=== PATIENT | male | born 1945 | race Caucasian/White ===

== ENCOUNTER → 2020-07-21 | Outpatient (CLI) | payer MEDICARE, OTHER ==
--- NOTE | 2020-07-21 16:28 | Diagnostic Imaging Report ---
CT Lung Screening INDICATION: 63-cdof-dmzq smoking history. Current smoker. TECHNIQUE: Noncontrast, low-dose CT imaging performed according to the lung cancer screening protocol. Auto Exposure Controls were utilize during the CT exam to meet ALARA standards for radiation dose reduction. COMPARISON: None. FINDINGS: Calcified granulomas in the upper lobes. Small groundglass opacity in the left upper lobe measuring approximately 0.6 cm. No solid pulmonary nodule. No pleural effusion or pneumothorax. No endobronchial lesions. No mediastinal or hilar lymphadenopathy. Normal heart size. Moderate atherosclerotic calcifications including coronary. Mild calcified pleural plaques. No acute osseous findings. Visualized upper abdominal contents are unremarkable. IMPRESSION: 1. 0.6 cm groundglass opacities in the left upper lobe. No solid pulmonary nodules. Recommend follow-up with low-dose chest CT in six months. 2. Moderate atherosclerotic ossifications including coronary. 3. Mild calcified pleural plaques can be seen with history of asbestos exposure. LUNG-RADS CATEGORY: 3. MODIFIER: None. Dictated by: Dictated on workstation # [id number]
== END ==
LOC: RAD 12:54
PROVIDERS: ATTEND Family Medicine
DX: I25.10 Atherosclerotic heart disease of native coronary artery without angina pectoris (principal); R91.8 Other nonspecific abnormal finding of lung field; F17.210 Nicotine dependence, cigarettes, uncomplicated
CPT/HCPCS: 71271

== ENCOUNTER → 2021-01-25 | Outpatient (CLI) | payer MEDICARE, OTHER ==
--- NOTE | 2021-01-25 15:13 | Diagnostic Imaging Report ---
EXAMINATION: CT chest without contrast (lung screening). TECHNIQUE: Multiple contiguous axial images were obtained through the chest without the use of intravenous contrast according to lung cancer screening protocol. All CT scans use one or more of the following dose optimizing techniques: Automated exposure control, MA and/or KvP adjustment based on patient size and exam type or iterative reconstruction. HISTORY: 60-idlv-vept history of smoking. COMPARISON: 08/19/2019. FINDINGS: There is no edema or pneumonia. No pleural effusion. No pneumothorax. 6 mm ground-glass nodule in the left upper lobe is unchanged. No new nodules are seen. There is no axillary or supraclavicular lymphadenopathy. There is no mediastinal lymphadenopathy. Heart size is normal. There are severe coronary artery calcifications. No pericardial effusion. Aorta is normal in caliber. Limited views of the upper abdomen are unremarkable. There are no suspicious osseous lesions. IMPRESSION: 1. Stable left upper lobe ground-glass nodule. Patient can return to annual screening. LUNG-RADS CATEGORY: 2 MODIFIER: None. Dictated by: Dictated on workstation # [id number]
== END ==
LOC: RAD 13:15
PROVIDERS: ATTEND Family Medicine
DX: Z12.2 Encounter for screening for malignant neoplasm of respiratory organs (principal); R91.1 Solitary pulmonary nodule; Z87.891 Personal history of nicotine dependence
CPT/HCPCS: 71271

== ENCOUNTER 2021-08-31 09:58 | Inpatient (IN) | payer MEDICARE, OTHER ==
[2021-08-31] VITALS (15 sets, daily range): BP systolic 88–134; BP diastolic 52–79
[~2021-08-31] VITALS: Ht 177 cm; Wt 73.6 kg
[2021-08-31] MEDS ORDERED: methylPREDNISolone 125 MG (Solu-MEDROL) VIAL IV STA (10:10)
[2021-08-31] MEDS ORDERED: RT-ALBUTEROL/IPRATROPIUM 3 ML (DUONEB) VIAL INH ONE (10:15)
[2021-08-31] MEDS ORDERED: VANCOMYCIN INJECTION 1,500 MG in NS IV 500 ML 500 ML IV ONE (10:15)
[2021-08-31] MEDS ORDERED: CEFEPIME INJECTION 1,000 MG in NS (IVPB) 50 ML IV ONE (10:15)
[2021-08-31] MEDS ORDERED: NS IV 1000 ML 1,000 ML IV SCH ×2 (10:15)
--- NOTE | 2021-08-31 10:19 | ED Respiratory ---
General Chief Complaint: Respiratory Problems Stated Complaint: SOA Source: patient, other ([facility] urgent care called ahead and spoke to nursing) Exam Limitations: no limitations History of Present Illness Date Seen by Provider: Aug 31, 2021 Time Seen by Provider: 09:58 Initial Comments Patient presents ER by private conveyance from urgent care, [facility] with chief complaint of dyspnea x1 day and oxygen saturations in the low 80s on room air. He has no baseline need for supplemental oxygen nor does use inhalers nebulizers or other bronchodilators. He is a pack-a-day smoker for many decades. He does not know if he has a history of COPD. He follows with Dr. Bourgeois. He is not having any pain or history of heart disease but he does have type 2 diabetes, hyperlipidemia, hypertension. He has had no fevers or chills. He says his granddaughter was sick a week or 2 ago but she got over it. He did have 2 doses of COVID vaccine as well as a flu vaccine but has never had COVID. He says his granddaughter was tested but they never found what caused her illness. He is not having diarrhea nausea vomiting or chills. All he thought was wrong was some sinus congestion and that is what brought him to the urgent care today. He has not been on antibiotics or steroids nor has he been hospitalized in the past 90 days. The patient is okay with being intubated if necessary and is a full code. Allergies and Home Medications Allergies Coded Allergies: No Known Drug Allergies (Unverified , 08/31/21) Patient Home Medication List Home Medication List Reviewed: Yes Review of Systems Review of Systems Constitutional: No chills, No diaphoresis, No fever; malaise EENTM: No ear discharge, No ear pain Respiratory: cough, dyspnea on exertion; No phlegm; short of breath, wheezing Cardiovascular: No chest pain, No edema, No Hx of Intervention Gastrointestinal: No abdominal pain, No constipation, No diarrhea, No nausea Genitourinary: No discharge, No dysuria Musculoskeletal: No back pain, No joint pain Skin: No dryness, No lesions, No rash Psychiatric/Neurological: Denies Anxiety, Denies Depressed All Other Systems Reviewed Negative Unless Noted: Yes Past Nkwhrta-Ybbywc-Wzbjdw Hx Patient Social History Tobacco Use?: Yes Tobacco type used: Cigarettes Smoking Status: Current Everyday Smoker (Pack per day) Use of E-Cig and/or Vaping dev: No Substance use?: No Alcohol Use?: Yes Alcohol type: Beer Alcohol Frequency: Rarely Physical Exam Vital Signs - First Documented 08/31/21 08/31/21 09:58 10:01 Temp 37.5 Pulse 117 Resp 35 B/P (MAP) 110/86 (94) Pulse Ox 79 O2 Delivery Room Air O2 Flow Rate 10.00 Capillary Refill : Height: '" Weight: lbs. oz. kg; BMI Method: General Appearance: WD/WN, no apparent distress Eyes: Bilateral Eye Normal Inspection, Bilateral Eye PERRL, Bilateral Eye EOMI HEENT: PERRL/EOMI; No pharynx normal (Dry oral mucosa) Neck: non-tender, full range of motion, supple, normal inspection, other (No evidence of jugular venous distention) Respiratory: respiratory distress (Severe with oxygen saturation in the upper 70s on room air, increased work of breathing 40 breaths/min with accessory muscle use and intercostal retractions), accessory muscle use, wheezing, expiration Cardiovascular: normal peripheral pulses, regular rate, rhythm, no edema, no JVD, other (Prolonged capillary refill) Gastrointestinal: normal bowel sounds, non tender, soft, no organomegaly Neurologic/Psychiatric: alert, normal mood/affect, oriented x 3 Skin: warm/dry, cyanosis (A PICC) Focused Exam Sepsis Stage: Severe Sepsis Possible Source: Pulmonary Lactate Level 08/31/21 10:05: Lactic Acid Level 3.79*H 08/31/21 12:13: Time of Focused Exam: 12:27 Respiratory: Decreased Breath Sounds, Expiration, Respiratory Distress, Wheezing Cardiovascular: Regular Rate, Rhythm, No Edema; No Tachycardia (90) Capillary Refill: Less Than 3 Seconds Peripheral Pulses: 2+ Radial Pulses (R), 2+ Radial Pulses (L) Skin: normal color, warm/dry Lactic Acid Level Laboratory Tests Test 08/31/21 10:05 08/31/21 12:13 Lactic Acid Level 3.79 MMOL/L (0.50-2.00) *H Within 3hrs of presentation: Admin fluids, Admin ABX, Blood cultures prior to ABX's, Focus exam, Lactate level Progress/Results/Core Measures Suspected Sepsis SIRS Temperature: Pulse: Respiratory Rate: Laboratory Tests 08/31/21 10:05: White Blood Count 10.2 Blood Pressure / Mean: 08/31/21 10:05: Lactic Acid Level 3.79*H 08/31/21 12:13: Laboratory Tests 08/31/21 10:05: Creatinine 1.49H, INR Comment 1.2, Platelet Count 222, Total Bilirubin 0.9 Results/Orders Lab Results Laboratory Tests Test 08/31/21 10:02 08/31/21 10:05 08/31/21 10:45 08/31/21 12:13 Range/Units Influenza Type A (RT-PCR) Not Detected Not Detecte Influenza Type B (RT-PCR) Not Detected Not Detecte SARS-CoV-2 RNA (RT-PCR) Not Detected Not Detecte White Blood Count 10.2 4.3-11.0 10^3/uL Red Blood Count 5.83 H 4.30-5.52 10^6/uL Hemoglobin 17.3 13.3-17.7 g/dL Hematocrit 53 40-54 % Mean Corpuscular Volume 92 80-99 fL Mean Corpuscular Hemoglobin 30 25-34 pg Mean Corpuscular Hemoglobin Concent 32 32-36 g/dL Red Cell Distribution Width 14.6 H 10.0-14.5 % Platelet Count 222 130-400 10^3/uL Mean Platelet Volume 10.7 9.0-12.2 fL Immature Granulocyte % (Auto) 0 % Neutrophils (%) (Auto) 82 H 42-75 % Lymphocytes (%) (Auto) 11 L 12-44 % Monocytes (%) (Auto) 5 0-12 % Eosinophils (%) (Auto) 0 0-10 % Basophils (%) (Auto) 1 0-10 % Neutrophils # (Auto) 8.4 H 1.8-7.8 10^3/uL Lymphocytes # (Auto) 1.1 1.0-4.0 10^3/uL Monocytes # (Auto) 0.5 0.0-1.0 10^3/uL Eosinophils # (Auto) 0.0 0.0-0.3 10^3/uL Basophils # (Auto) 0.1 0.0-0.1 10^3/uL Immature Granulocyte # (Auto) 0.0 0.0-0.1 10^3/uL Neutrophils % (Manual) 45 % Lymphocytes % (Manual) 10 % Monocytes % (Manual) 3 % Eosinophils % (Manual) 0 % Basophils % (Manual) 1 % Band Neutrophils 41 % Blood Morphology Comment NORMAL Prothrombin Time 15.1 H 12.2-14.7 SEC INR Comment 1.2 0.8-1.4 Activated Partial Thromboplast Time 40 H 24-35 SEC D-Dimer 3.29 H 0.00-0.49 UG/ML Blood Gas Puncture Site RIGHT RADIAL L RAD Blood Gas Patient Temperature 37.5 37.5 Arterial Blood pH 7.20 *L 7.28 *L 7.37-7.43 Arterial Blood Partial Pressure CO2 59 H 39 35-45 MMHG Arterial Blood Partial Pressure O2 22 *L 75 L 79-93 MMHG Arterial Blood HCO3 22 L 17 *L 23-27 MMOL/L Arterial Blood Total CO2 23.8 18.4 L 21.0-31.0 MMOL/L Arterial Blood Oxygen Saturation 21 L 94 94-100 % Arterial Blood Base Excess -4.6 L -8.1 L -2.5-2.5 MMOL/L Willy Test YES-POS YES-POS Blood Gas Ventilator Setting NO NO Blood Gas Inspired Oxygen 10 60% Sodium Level 133 L 135-145 MMOL/L Potassium Level 5.0 3.6-5.0 MMOL/L Chloride Level 95 L 98-107 MMOL/L Carbon Dioxide Level 17 L 21-32 MMOL/L Anion Gap 21 H 5-14 MMOL/L Blood Urea Nitrogen 28 H 7-18 MG/DL Creatinine 1.49 H 0.60-1.30 MG/DL Estimat Glomerular Filtration Rate 49 BUN/Creatinine Ratio 19 Glucose Level 197 H 70-105 MG/DL Lactic Acid Level 3.79 *H 0.50-2.00 MMOL/L Calcium Level 9.9 8.5-10.1 MG/DL Corrected Calcium 8.5-10.1 MG/DL Magnesium Level 2.1 1.6-2.4 MG/DL Total Bilirubin 0.9 0.1-1.0 MG/DL Aspartate Amino Transf (AST/SGOT) 22 5-34 U/L Alanine Aminotransferase (ALT/SGPT) 15 0-55 U/L Alkaline Phosphatase 66 40-136 U/L Troponin I < 0.028 <0.028 NG/ML C-Reactive Protein High Sensitivity 53.70 H 0.00-0.50 MG/DL B-Type Natriuretic Peptide 69.3 <100.0 PG/ML Total Protein 9.0 H 6.4-8.2 GM/DL Albumin 4.7 H 3.2-4.5 GM/DL Procalcitonin 5.85 H <0.10 NG/ML My Orders Orders - GABI SANCHEZ Cbc With Automated Diff (08/31/21 10:10) Comprehensive Metabolic Panel (08/31/21 10:10) Blood Culture (08/31/21 10:10) Sputum Culture (08/31/21 10:10) Urinalysis (08/31/21 10:10) Urine Culture (08/31/21 10:10) Protime With Inr (08/31/21 10:10) Partial Thromboplastin Time (08/31/21 10:10) Chest 1 View, Ap/Pa Only (08/31/21 10:10) Ed Iv/Invasive Line Start (08/31/21 10:10) Ed Iv/Invasive Line Start (08/31/21 10:10) Ekg Tracing (08/31/21 10:10) Troponin I Bernardo (08/31/21 10:10) Vital Signs Adult Sepsis Patie Q15M (08/31/21 10:10) O2 (08/31/21 10:10) Remove Rings In Anticipation O (08/31/21 10:10) Lactic Acid Analyzer (08/31/21 10:10) Influenza A And B By Pcr (08/31/21 10:10) Ns Iv 1000 Ml (Sodium Chloride 0.9%) (08/31/21 10:15) Cefepime Injection (Maxipime Injection) (08/31/21 10:15) Vancomycin Injection (Vancomycin Injecti (08/31/21 10:15) Ed Iv/Invasive Line Start (08/31/21 10:10) Ns Iv 1000 Ml (Sodium Chloride 0.9%) (08/31/21 10:15) Albuterol/Ipra Inhalation Soln (Duoneb I (08/31/21 10:15) Methylprednisolone Sod Succ (Solu-Medrol (08/31/21 10:10) Covid 19 Inhouse Test (08/31/21 10:10) Svn Small Volume Nebulizer (08/31/21 10:10) Bnp Bernardo (08/31/21 10:10) Procalcitonin (Pct) (08/31/21 10:10) Hs C Reactive Protein (08/31/21 10:10) Fibrin Degradation Products (08/31/21 10:10) Magnesium (08/31/21 10:10) Arterial Blood Gas (08/31/21 10:10) Arterial Blood Gas (08/31/21 10:45) Manual Differential (08/31/21 10:05) Ed Iv/Invasive Line Start (08/31/21 11:09) Ns Iv 500 Ml (Sodium Chloride 0.9%) (08/31/21 11:15) Ct Angio Chest W (08/31/21 11:11) Iohexol Injection (Omnipaque 350 Mg/Ml 1 (08/31/21 11:30) Received Contrast (Hold Metformin- Contr (08/31/21 11:30) Sodium Chloride Flush (Catheter Flush Sy (08/31/21 11:30) Ns (Ivpb) (Sodium Chloride 0.9% Ivpb Bag (08/31/21 11:30) Iohexol Injection (Omnipaque 350 Mg/Ml 1 (08/31/21 11:30) Received Contrast (Hold Metformin- Contr (08/31/21 11:30) Sodium Chloride Flush (Catheter Flush Sy (08/31/21 11:30) Ns (Ivpb) (Sodium Chloride 0.9% Ivpb Bag (08/31/21 11:30) Iohexol Injection (Omnipaque 350 Mg/Ml 1 (08/31/21 11:45) Received Contrast (Hold Metformin- Contr (08/31/21 11:45) Ns (Ivpb) (Sodium Chloride 0.9% Ivpb Bag (08/31/21 11:45) Sodium Chloride Flush (Catheter Flush Sy (08/31/21 11:45) Medications Given in ED Current Medications Medications Dose Ordered Sig/Stefano Route Start Time Stop Time Status Last Admin Dose Admin Albuterol/ Ipratropium 3 ml ONCE ONCE INH 08/31/21 10:15 08/31/21 10:16 DC 08/31/21 10:25 3 ML Cefepime HCl 1000 mg/Sodium Chloride 50 ml @ 100 mls/hr ONCE ONCE IV 08/31/21 10:15 08/31/21 10:44 DC 08/31/21 10:24 100 MLS/HR Iohexol 100 ml ONCE ONCE IV 08/31/21 11:30 08/31/21 11:31 DC 08/31/21 11:33 77 ML Sodium Chloride 100 ml ONCE ONCE IV 08/31/21 11:30 08/31/21 11:31 DC 08/31/21 11:33 80 ML Sodium Chloride 500 ml @ 0 mls/hr Q0M ONCE IV 08/31/21 11:15 08/31/21 11:16 DC 08/31/21 11:14 0 MLS/HR Vancomycin HCl 1500 mg/Sodium Chloride 500 ml @ 257 mls/hr ONCE ONCE IV 08/31/21 10:15 08/31/21 12:11 DC 08/31/21 10:54 257 MLS/HR Vital Signs/I&O 08/31/21 08/31/21 08/31/21 08/31/21 09:58 10:01 10:07 10:25 Temp 37.5 Pulse 117 110 Resp 35 42 B/P (MAP) 110/86 (94) Pulse Ox 79 93 O2 Delivery Room Air OxyMask NIV Bilevel O2 Flow Rate 10.00 60.00 08/31/21 08/31/21 08/31/21 10:44 11:05 11:42 Pulse 99 93 Resp 37 40 40 B/P (MAP) 85/61 113/64 96/56 Pulse Ox 92 99 97 O2 Delivery NIV Bilevel NIV Bilevel Capillary Refill : Progress Note #1: Time: : Progress Note We initiated a septic work-up, obtain an ABG, put him on an oxygen mask at 10 L which only brought him up to the upper 80s low 90%. Put him on a BiPAP 15/5 60% and he is pulling 5-600 tidal volumes. This helped his work of breathing significantly. We will give him DuoNeb, Solu-Medrol 125 mg and check labs looking for source of his dyspnea. Suspect highly that he has a COPD exacerbation however could also be less likely pneumonia, viral pneumonia, pulmonary embolism etc. Progress Note #2: Time: 11:12 Progress Note Because of his D-dimer profound hypoxemia we ordered a CT angio of the chest. Because his lactate put him in severe sepsis range we ordered another 500 cc normal saline, bringing us over 30 cc/kg, 2500 cc total. ECG Initial ECG Impression Date: Aug 31, 2021 Initial ECG Impression Time: 10:07 Initial ECG Rate: 110 Initial ECG Rhythm: S.Tach Initial ECG Intervals: Normal Initial ECG Impression: Normal, Nonspecific Changes Initial ECG Comparisson: No Previous ECG Available Comment Respiratory artifact but no clinically relevant ST elevation or depression. Diagnostic Imaging Diagonstic Imaging: Xray Plain Films/CT/US/NM/MRI: chest Comments [facility], [place] NAME: MONAE PROCTOR [facility] REC#: [id number] PT STATUS: REG ER : 1945 PHYSICIAN: GABI SANCHEZ MD ADMIT DATE: 08/31/21/ER Draft Date of Exam:08/31/21 CHEST 1 VIEW, AP/PA ONLY INDICATION: Dyspnea. Frontal chest obtained at 11:01 a.m. There is no prior study for comparison Heart is borderline in size. There are chronic appearing increased interstitial markings. There is hyperinflation. No pneumothorax or pleural fluid. There is no discrete acute infiltrate. There are advanced degenerative changes of the glenohumeral joints on both sides. IMPRESSION: Chronic appearing increased interstitial markings. Hyperinflation. No dayna consolidation or pleural fluid. Dictated on workstation # [id number] Dict: 08/31/21 1115 Trans: 08/31/21 1128 CV [id number] Interpreted by: JANI WELLINGTON MD Electronically signed by: Reviewed: Reviewed by Me Diagonstic Imaging: CT Plain Films/CT/US/NM/MRI: chest (Angiogram) Comments [facility], [place] NAME: MONAE PROCTOR [facility] REC#: [id number] PT STATUS: REG ER : 1945 PHYSICIAN: GABI SANCHEZ MD ADMIT DATE: 08/31/21/ER Signed Date of Exam:08/31/21 CT ANGIO CHEST W EXAMINATION: CT angiography of the chest. TECHNIQUE: Contrast enhanced thin section helical images were obtained through the chest with intravenous contrast timed for the optimal opacification of the arterial structures per CTA protocol. Post-processing, reconstructions and interpretation of angiographic images of the vessels was performed. 3D MIP reconstructions were performed and reviewed. All CT scans use one or more of the following dose optimizing techniques: automated exposure control, MA and/or KvP adjustment based on a patient size and exam type, or iterative reconstruction. HISTORY: Shortness of breath and hypoxia. COMPARISON: 01/25/2021 FINDINGS: Vascular: No filling defects are seen within the visualized pulmonary arteries. Distal pulmonary arteries are not well visualized secondary to respiratory motion consolidation. There are vascular calcifications of the aorta and coronary vessels without aneurysm. Thyroid: The thyroid is normal. Mediastinum: Heart size is normal without significant pericardial effusion. There are multiple mildly enlarged mediastinal lymph nodes measuring up to 1.7 cm short axis. Lungs and airways: Patchy consolidation within the lung bases greatest within the left lower lobe. No pleural effusion or pneumothorax. The airways are normal. Upper abdomen: The subphrenic structures are normal. Musculoskeletal: Degenerative changes of the spine without suspicious osseous lesion or compression fracture. IMPRESSION: 1. No obvious findings of pulmonary embolus within the visualized pulmonary arteries. 2. Patchy consolidation throughout the lungs concerning for multifocal pneumonia. Dictated by: Dictated on workstation # [id number] Dict: 08/31/21 1144 Trans: 08/31/21 1150 CV [id number] Interpreted by: PETRA CORTES DO Electronically signed by: PETRA CORTES DO 08/31/21 1150 Reviewed: Reviewed by Me Departure Communication (Admissions) Time/Spoke to Admitting Phy: 11:50 Discussed the case with Dr. Depmsey who will come down and visit with the patient and agrees to admit him and write orders. Impression Primary Impression: Pneumonia Qualified Codes: J18.9 - Pneumonia, unspecified organism Additional Impressions: Severe sepsis Acute respiratory failure with hypoxemia Disposition: ADMITTED INPATIENT Condition: Stable Admissions Decision to Admit Reason: Admit from ER (General) Decision to Admit/Date: Aug 31, 2021 Time/Decision to Admit Time: 11:30 Departure-Patient Inst. Referrals: SHERITA BOURGEOIS DO (PCP/Family) Primary Care Physician GABI SANCHEZ Aug 31, 2021 10:19
[2021-08-31 10:23] LABS: ABG BASE EXCESS -4.6 MMOL/L (-2.5-2.5); ABG OXYGEN SATURATION 21 % (94-100); ABG PCO2 59 MMHG (35-45); ABG TCO2 23.8 MMOL/L (21.0-31.0); BASOPHILS # (AUTO) 0.1 10^3/uL (0.0-0.1); BASOPHILS % (AUTO) 1 % (0-10); EOSINOPHILS % (AUTO) 0 % (0-10); HEMATOCRIT 53 % (40-54); HEMOGLOBIN 17.3 g/dL (13.3-17.7); LYMPHOCYTES # (AUTO) 1.1 10^3/uL (1.0-4.0); LYMPHOCYTES % (AUTO) 11 % (12-44); MEAN CORPUSCULAR HEMOGLOBIN 30 pg (25-34); MEAN CORPUSCULAR HGB CONC 32 g/dL (32-36); MEAN CORPUSCULAR VOLUME 92 fL (80-99); MEAN PLATELET VOLUME 10.7 fL (9.0-12.2); MONOCYTES # (AUTO) 0.5 10^3/uL (0.0-1.0); MONOCYTES % (AUTO) 5 % (0-12); NEUTROPHILS # (AUTO) 8.4 10^3/uL (1.8-7.8); NEUTROPHILS % (AUTO) 82 % (42-75); PLATELET COUNT 222 10^3/uL (130-400); WHITE BLOOD COUNT 10.2 10^3/uL (4.3-11.0)
[2021-08-31 10:31] LABS: ABG PO2 22 MMHG (79-93); ALLENS TEST YES-POS; INSPIRED O2 10; PATIENT TEMP 37.5; VENTILATOR NO
[2021-08-31 10:44] LABS: ALBUMIN 4.7 GM/DL (3.2-4.5); CHLORIDE 95 MMOL/L (98-107); FIBRIN DEGRADATION PRODUCTS 3.29 UG/ML (0.00-0.49); INR 1.2 (0.8-1.4); PROTHROMBIN TIME PATIENT 15.1 SEC (12.2-14.7); SODIUM 133 MMOL/L (135-145)
[2021-08-31 10:46] LABS: CALCIUM 9.9 MG/DL (8.5-10.1)
[2021-08-31 10:47] LABS: GLUCOSE 197 MG/DL (70-105)
[2021-08-31 10:48] LABS: CARBON DIOXIDE 17 MMOL/L (21-32)
[2021-08-31 10:49] LABS: BILIRUBIN,TOTAL 0.9 MG/DL (0.1-1.0)
[2021-08-31 10:50] LABS: ALKALINE PHOSPHATASE 66 U/L (40-136)
[2021-08-31 10:51] LABS: CREATININE SERUM 1.49 MG/DL (0.60-1.30); GFR ESTIMATED 49
[2021-08-31 10:52] LABS: BUN/CREATININE RATIO 19
[2021-08-31 10:53] LABS: ALANINE AMINOTRANSFERASE 15 U/L (0-55); MAGNESIUM 2.1 MG/DL (1.6-2.4)
[2021-08-31 10:55] LABS: ABG BASE EXCESS -8.1 MMOL/L (-2.5-2.5); ABG OXYGEN SATURATION 94 % (94-100); ABG PCO2 39 MMHG (35-45); ABG PO2 75 MMHG (79-93); ABG TCO2 18.4 MMOL/L (21.0-31.0)
[2021-08-31 11:02] LABS: ABG PH 7.28 (7.37-7.43); ALLENS TEST YES-POS; INSPIRED O2 60%; PATIENT TEMP 37.5; VENTILATOR NO
[2021-08-31 11:04] LABS: BAND NEUTROPHILS 41 %; BASOPHILS % (MANUAL) 1 %; EOSINOPHILS % (MANUAL) 0 %; LYMPHOCYTES % (MANUAL) 10 %; MONOCYTES % (MANUAL) 3 %; NEUTROPHILS % (MANUAL) 45 %; RBC MORPH NORMAL
[2021-08-31] MEDS ORDERED: NS IV 500 ML 500 ML IV ONE (11:15)
--- NOTE | 2021-08-31 11:29 | Diagnostic Imaging Report ---
INDICATION: Dyspnea. Frontal chest obtained at 11:01 a.m. There is no prior study for comparison Heart is borderline in size. There are chronic appearing increased interstitial markings. There is hyperinflation. No pneumothorax or pleural fluid. There is no discrete acute infiltrate. There are advanced degenerative changes of the glenohumeral joints on both sides. IMPRESSION: Chronic appearing increased interstitial markings. Hyperinflation. No dayna consolidation or pleural fluid. Dictated by: Dictated on workstation # [id number]
[2021-08-31] MEDS ORDERED: NS 100 ML (IVPB) BAG IV ONE ×3 (11:30→11:45)
[2021-08-31] MEDS ORDERED: IOHEXOL 350 MG/ML 100 ML (OMNIPAQUE 350) VIAL IV ONE ×3 (11:30→11:45)
[2021-08-31] MEDS ORDERED: HOLD METFORMIN - RECEIVED CONTRAST 20 ML VIAL IV SCH ×3 (11:30→11:45)
[2021-08-31] MEDS ORDERED: CATHETER FLUSH 10 ML SYR IV PRN ×3 (11:30→11:45)
--- NOTE | 2021-08-31 11:49 | Diagnostic Imaging Report ---
EXAMINATION: CT angiography of the chest. TECHNIQUE: Contrast enhanced thin section helical images were obtained through the chest with intravenous contrast timed for the optimal opacification of the arterial structures per CTA protocol. Post-processing, reconstructions and interpretation of angiographic images of the vessels was performed. 3D MIP reconstructions were performed and reviewed. All CT scans use one or more of the following dose optimizing techniques: automated exposure control, MA and/or KvP adjustment based on a patient size and exam type, or iterative reconstruction. HISTORY: Shortness of breath and hypoxia. COMPARISON: 01/25/2021 FINDINGS: Vascular: No filling defects are seen within the visualized pulmonary arteries. Distal pulmonary arteries are not well visualized secondary to respiratory motion consolidation. There are vascular calcifications of the aorta and coronary vessels without aneurysm. Thyroid: The thyroid is normal. Mediastinum: Heart size is normal without significant pericardial effusion. There are multiple mildly enlarged mediastinal lymph nodes measuring up to 1.7 cm short axis. Lungs and airways: Patchy consolidation within the lung bases greatest within the left lower lobe. No pleural effusion or pneumothorax. The airways are normal. Upper abdomen: The subphrenic structures are normal. Musculoskeletal: Degenerative changes of the spine without suspicious osseous lesion or compression fracture. IMPRESSION: 1. No obvious findings of pulmonary embolus within the visualized pulmonary arteries. 2. Patchy consolidation throughout the lungs concerning for multifocal pneumonia. Dictated by: Dictated on workstation # [id number]
--- NOTE | 2021-08-31 12:13 | History & Physical-Hospitalist ---
History of Present Illness HPI/Chief Complaint Patient 75-year-old male who presented to the emergency department due to shortness of breath and cough. He states it started a day or 2 ago but worsened acutely today. He states his granddaughter brought him in as he was worsening. On arrival he was quite hypoxic with oxygen saturations in the 70s placed on OxiMask. He was quite hypoxic on ABG and was subsequently placed on BiPAP for work of breathing. CTA was done which was negative for PE but showed multifocal pneumonia. He was admitted to the ICU for further management and IV antibiotics. Source: patient Exam Limitations: no limitations Date Seen 08/31/21 Time Seen by a Provider: 12:07 Attending Physician PCP Sherita Bourgeois DO Referring Physician Date of Admission Home Medications & Allergies Home Medications Reviewed patient Home Medication Reconciliation performed by pharmacy medication reconciliations ict support technicians and/or nursing. Patients Allergies have been reviewed. Allergies Allergies Coded Allergies No Known Drug Allergies (Unverified08/31/21) Past Jscdied-Frgmfu-Kxnlns Hx Patient Social History Tobacco Use?: Yes Tobacco type used: Cigarettes Smoking Status: Current Everyday Smoker (Pack per day) Use of E-Cig and/or Vaping dev: No Substance use?: No Alcohol Use?: Yes Alcohol type: Beer Alcohol Frequency: Rarely Immunizations Up To Date First/Initial COVID19 Vaccinat: RECEIVED, UNSURE WHEN Second COVID19 Vaccination Maxime: RECEIVED, UNSURE WHEN Current Status Advance Directives: No Communicates: Verbally Primary Language: Guyanese Preferred Spoken Language: Guyanese Is interpretation needed?: No Implanted or Applied Medical D: None Review of Systems Constitutional: No chills, No fever EENTM: no symptoms reported Respiratory: cough, dyspnea on exertion; No hemoptysis; short of breath Cardiovascular: No chest pain, No edema, No palpitations Gastrointestinal: No abdominal pain, No constipation, No diarrhea, No nausea, No vomiting Genitourinary: No dysuria, No frequency Musculoskeletal: no symptoms reported Skin: no symptoms reported Psychiatric/Neurological: No Symptoms Reported Physical Exam Physical Exam Vital Signs Vital Signs - First Documented 08/31/21 08/31/21 08/31/21 09:58 10:01 14:40 Temp 37.5 Pulse 117 Resp 35 B/P (MAP) 110/86 (94) Pulse Ox 79 O2 Delivery Room Air O2 Flow Rate 10.00 FiO2 60 Capillary Refill : Less Than 3 Seconds Height, Weight, BMI Height: '" Weight: lbs. oz. kg; 28.00 BMI Method: General Appearance: No Apparent Distress, WD/WN HEENT: PERRL/EOMI, Moist Mucous Membranes Neck: Normal Inspection, Supple Respiratory: No Accessory Muscle Use, Rhonci; No Wheezing; Other (on BiPAP) Cardiovascular: Regular Rate, Rhythm, No Murmur Gastrointestinal: Normal Bowel Sounds, Non Tender, Soft Extremity: Normal Capillary Refill, No Calf Tenderness, No Pedal Edema Neurologic/Psychiatric: Alert, Oriented x3, Normal Mood/Affect Results Results/Procedures Labs Laboratory Tests 08/31/21 10:05 09/01/21 04:43 09/02/21 03:50 Patient resulted labs reviewed. Imaging: Reviewed Imaging Report [facility] [place] NAME: MONAE PROCTOR [facility] REC#: [id number] PT STATUS: REG ER : 1945 PHYSICIAN: GABI SANCHEZ MD ADMIT DATE: 08/31/21/ER Signed Date of Exam:08/31/21 CHEST 1 VIEW, AP/PA ONLY INDICATION: Dyspnea. Frontal chest obtained at 11:01 a.m. There is no prior study for comparison Heart is borderline in size. There are chronic appearing increased interstitial markings. There is hyperinflation. No pneumothorax or pleural fluid. There is no discrete acute infiltrate. There are advanced degenerative changes of the glenohumeral joints on both sides. IMPRESSION: Chronic appearing increased interstitial markings. Hyperinflation. No dayna consolidation or pleural fluid. Dictated by: Dictated on workstation # [id number] Dict: 08/31/21 1115 Trans: 08/31/21 1143 [facility] [id number] Interpreted by: JANI WELLINGTON MD Electronically signed by: JANI WELLINGTON MD 08/31/21 1143 [facility] [employer] [place] NAME: HITESHMONAE [facility] REC#: [id number] PT STATUS: REG ER : 1945 PHYSICIAN: GABI SANCHEZ MD ADMIT DATE: 08/31/21/ER Signed Date of Exam:08/31/21 CT ANGIO CHEST W EXAMINATION: CT angiography of the chest. TECHNIQUE: Contrast enhanced thin section helical images were obtained through the chest with intravenous contrast timed for the optimal opacification of the arterial structures per CTA protocol. Post-processing, reconstructions and interpretation of angiographic images of the vessels was performed. 3D MIP reconstructions were performed and reviewed. All CT scans use one or more of the following dose optimizing techniques: automated exposure control, MA and/or KvP adjustment based on a patient size and exam type, or iterative reconstruction. HISTORY: Shortness of breath and hypoxia. COMPARISON: 01/25/2021 FINDINGS: Vascular: No filling defects are seen within the visualized pulmonary arteries. Distal pulmonary arteries are not well visualized secondary to respiratory motion consolidation. There are vascular calcifications of the aorta and coronary vessels without aneurysm. Thyroid: The thyroid is normal. Mediastinum: Heart size is normal without significant pericardial effusion. There are multiple mildly enlarged mediastinal lymph nodes measuring up to 1.7 cm short axis. Lungs and airways: Patchy consolidation within the lung bases greatest within the left lower lobe. No pleural effusion or pneumothorax. The airways are normal. Upper abdomen: The subphrenic structures are normal. Musculoskeletal: Degenerative changes of the spine without suspicious osseous lesion or compression fracture. IMPRESSION: 1. No obvious findings of pulmonary embolus within the visualized pulmonary arteries. 2. Patchy consolidation throughout the lungs concerning for multifocal pneumonia. Dictated by: Dictated on workstation # [id number] Dict: 08/31/21 1144 Trans: 08/31/21 1150 [facility] [id number] Interpreted by: PETRA CORTES DO Electronically signed by: PETRA CORTES DO 08/31/21 1150 Assessment/Plan Admission Diagnosis Acute hypoxic respiratory failure due to multifocal pneumonia Admission Status: Inpatient Order (span 2 midnights) Reason for Inpatient Admission: see below Assessment and Plan Acute hypoxic respiratory failure due to multifocal pneumonia Continue on BiPAP Continue on IV abx No sepsis criteria met currently but high procal and on BiPAP so will admit to ICU MAT protocol Pulm/TeleICU consulted, appreciate recs HTN BP low currently, trend Hold home meds NIDDMII Hold home metformin as he received contrast SSI HLD Continue home meds when med rec done DVT ppx: Lovenox Diagnosis/Problems Diagnosis/Problems (1) Acute respiratory failure with hypoxia Status: Acute (2) CKD (chronic kidney disease) Qualifiers: Chronic kidney disease stage: stage 3 (moderate) Chronic kidney disease stage 3 subtype: stage 3a (GFR 45-59) Qualified Codes: N18.31 - Chronic kidney disease, stage 3a (3) COPD (chronic obstructive pulmonary disease) Status: Chronic Qualifiers: COPD type: unspecified COPD Qualified Codes: J44.9 - Chronic obstructive pulmonary disease, unspecified (4) Essential (primary) hypertension Status: Chronic (5) HLD (hyperlipidemia) Status: Chronic Qualifiers: Hyperlipidemia type: unspecified Qualified Codes: E78.5 - Hyperlipidemia, unspecified (6) Non-insulin dependent type 2 diabetes mellitus Status: Chronic (7) Tobacco abuse Status: Chronic Copy Copies To 1: SHERITA BOURGEOIS KATELYN M MD Aug 31, 2021 12:13
[2021-08-31] MEDS ORDERED: NS IV 1000 ML 1,000 ML IV ONE (12:45)
[2021-08-31 13:19] LABS: BILIRUBIN,URINE NEGATIVE (NEGATIVE); CLARITY,URINE CLEAR; COLOR,URINE YELLOW; GLUCOSE, URINE (UA) 3+ (NEGATIVE); KETONES,URINE NEGATIVE (NEGATIVE); LEUKOCYTE ESTERASE ,URINE TRACE (NEGATIVE); NITRITE,URINE NEGATIVE (NEGATIVE); PROTEIN,URINE TRACE (NEGATIVE)
[2021-08-31 13:28] LABS: WBC,URINE 0-2 /HPF
[2021-08-31 13:29] LABS: BACTERIA,URINE TRACE /HPF; SQUAMOUS EPITHELIAL CELL,UR 0-2 /HPF
[2021-08-31] MEDS ORDERED: BENZONATATE 100 MG (TESSALON) CAPSULE PO PRN (13:45)
[2021-08-31] MEDS ORDERED: ONDANSETRON 4 MG/2 ML (SDV) Z0FRAN IV PRN (13:45)
[2021-08-31] MEDS ORDERED: CALCIUM CARBONATE 500 MG (TUMS) TAB.CHEW PO PRN (13:45)
[2021-08-31] MEDS ORDERED: polyethylene glycoL POWDER 17 GM (MIRALAX) PACK PO PRN (13:45)
[2021-08-31] MEDS ORDERED: MELATONIN 3 MG TABLET PO PRN (13:45)
[2021-08-31] MEDS ORDERED: ACETAMINOPHEN 325 MG TABLET PO PRN (13:45)
[2021-08-31] MEDS: AZITHROMYCIN INJECTION 500 MG in NS (IVPB) 250 ML IV SCH (14:07)
[2021-08-31] MEDS: ENOXAPARIN 40 MG/0.4 ML (LOVENOX) SYR SC SCH (14:07)
[2021-08-31] MEDS ORDERED: OMEG-160 PO (14:16)
[2021-08-31] MEDS ORDERED: GEMF600T88 PO (14:16)
[2021-08-31] MEDS ORDERED: ATOR40TA70 PO (14:16)
[2021-08-31] MEDS ORDERED: ASPI-1238 PO (14:16)
[2021-08-31] MEDS ORDERED: ENAL20TA16 PO (14:16)
[2021-08-31] MEDS ORDERED: METF-397 PO (14:16)
[2021-08-31] MEDS: CEFEPIME 1,000 MG/NS 50 ML IVPB IV SCH ×4 (14:21→22:49)
[2021-08-31] MEDS ORDERED: RT-ALBUTEROL/IPRATROPIUM 3 ML (DUONEB) VIAL INH PRN (15:00)
--- NOTE | 2021-08-31 16:55 | Tele-ICU Consult ---
History of Present Illness History of Present Illness Date Seen by Provider: Aug 31, 2021 Time Seen by Provider: 13:01 Date of Admission (Tele-ICU Physician , consultation) Available chart/ vitals / labs / Images reviewed H&P is from ER notes Patient's information available about PMH, Shx, Fhx allergy reviewed in EMR. ROS as per chart and RN report Now in ICU, hemodynamically stable Video assessment done using teleICU camera, rest of exam as per RN Discussed with RN. Consultants: Hospital course: 08/31 - ARF - BIPAP , PNA ( CTA -no pe) A/P Acute resp failure , hypoxic and hypercarbic - wason BIPAP in ER = WOB improving , will re-eval ANG at PNA - findings on CT are minimal infiltrates , but with elev PCT will cont agressive TX for PNA Elev lactate - with AG improving with hydration and oxugenation MERY ( with borderline K - follow with hydration ( lso recived contrast 08/31 Resp and met AG acidosis - due to avove - follow Elv DDIMER od 3 .2 - no PE on CTA 08/31 Lines : (Central Line Necessity Reviewed) Paz: OG: Nutrition: po Analgesia: Anxiety/ delirium VTE Prophylaxis: leila 40 Stress Ulcer Prophylaxis: po Plans in collaboration with bedside consultants and IM MDs. Discussed with RN to reach out if any questions or concerns A total of 32 minutes of critical care time was devoted to this patient today, required to treat and/or prevent further deterioration of critical care condition ( as above ) . Allergies and Home Medications Allergies Coded Allergies: No Known Drug Allergies (Unverified , 08/31/21) Home Medications Aspirin 81 Mg Tablet.dr, 81 MG PO HS, (Reported) Atorvastatin Calcium 40 Mg Tablet, 40 MG PO HS, (Reported) Enalapril Maleate 20 Mg Tablet, 20 MG PO HS, (Reported) Gemfibrozil 600 Mg Tablet, 600 MG PO BID, (Reported) Metformin HCl 500 Mg Tablet, 1,000 MG PO BID WITH MEALS, (Reported) TAKES 2 (500MG) TABS Martelle-3/Dha/Epa/Fish Oil 1 Each Capsule, 2 EACH PO BID, (Reported) Past Medical/Social/Family Hx Patient Social History Tobacco Use?: Yes Tobacco type used: Cigarettes Smoking Status: Current Everyday Smoker (Pack per day) Use of E-Cig and/or Vaping dev: No Substance use?: No Alcohol Use?: Yes Alcohol type: Beer Alcohol Frequency: Rarely Immunizations Up To Date First/Initial COVID19 Vaccinat: RECEIVED, UNSURE WHEN Second COVID19 Vaccination Maxime: RECEIVED, UNSURE WHEN Current Status Advance Directives: No Communicates: Verbally Primary Language: Prydeinig Preferred Spoken Language: Prydeinig Is interpretation needed?: No Implanted or Applied Medical D: None Review of Systems Constitutional: see HPI Focused Exam Sepsis Stage: Severe Sepsis Possible Source: Pulmonary Lactate Level 08/31/21 10:05: Lactic Acid Level 3.79*H 08/31/21 12:13: Lactic Acid Level 2.53*H 08/31/21 14:34: Lactic Acid Level 1.47 Height, Weight, BMI Height: '" Weight: lbs. oz. kg; 28.00 BMI Method: Time of Focused Exam: 12:27 Respiratory: Respiratory Distress Cardiovascular: Normal Peripheral Pulses Skin: normal color Lactic Acid Level Laboratory Tests Test 08/31/21 14:34 Lactic Acid Level 1.47 MMOL/L (0.50-2.00) Within 3hrs of presentation: Admin fluids, Admin ABX, Blood cultures prior to ABX's, Focus exam, Lactate level Exam Exam Patient acknowledged, consented, and participated in this virtual visit which was conducted using real time audio/video Vital Signs Date Time Temp Pulse Resp B/P (MAP) Pulse Ox O2 Delivery O2 Flow Rate FiO2 08/31/21 16:00 78 30 96/68 (77) 96 OxyMask 10.00 08/31/21 15:40 37.0 08/31/21 15:06 78 30 97 50.00 08/31/21 15:00 80 29 91/63 (72) 96 OxyMask 10.00 08/31/21 14:40 110 93 60 08/31/21 14:00 OxyMask 15.00 08/31/21 14:00 82 34 97/66 (76) 92 OxyMask 10.00 08/31/21 13:34 86 08/31/21 13:30 37.2 86 30 99/67 (78) 92 OxyMask 10.00 08/31/21 13:09 96 20 97/65 96 NIV Bilevel 08/31/21 13:02 89 22 97/65 96 NIV Bilevel 08/31/21 12:32 90 18 92/61 96 NIV Bilevel 08/31/21 11:42 93 40 96/56 97 NIV Bilevel 08/31/21 11:05 99 40 113/64 99 08/31/21 10:44 37 85/61 92 NIV Bilevel 08/31/21 10:25 110 42 93 60.00 08/31/21 10:07 NIV Bilevel 08/31/21 10:01 OxyMask 10.00 08/31/21 09:58 37.5 117 35 110/86 (94) 79 Room Air Height & Weight Height: '" Weight: lbs. oz. kg; 28.00 BMI Method: General Appearance: No Apparent Distress, WD/WN HEENT: PERRL/EOMI, Moist Mucous Membranes Neck: Normal Inspection, Supple Respiratory: Decreased Breath Sounds, Expiration, Respiratory Distress, Whe ezing Cardiovascular: Regular Rate, Rhythm, No Edema; No Tachycardia (90) Capillary Refill: Less Than 3 Seconds Peripheral Pulses: 2+ Radial Pulses (R), 2+ Radial Pulses (L) Gastrointestinal: normal bowel sounds, non tender, soft, no organomegaly Extremity: Normal Capillary Refill, No Calf Tenderness, No Pedal Edema Neurologic/Psychiatric: Alert, Oriented x3, Normal Mood/Affect Results Lab Laboratory Tests 08/31/21 10:05 Assessment/Plan Assessment/Plan . YADIRA SANCHEZ MD Aug 31, 2021 16:55
[2021-08-31] MEDS: inSUlin ASPART (NovoLOG) 1 UNIT/0.01 ML (CHARGE PER UNIT) SC SCH ×2 (17:15→20:51)
[2021-08-31 17:27] LABS: ABG BASE EXCESS -10.2 MMOL/L (-2.5-2.5); ABG OXYGEN SATURATION 95 % (94-100); ABG PCO2 32 MMHG (35-45); ABG PO2 77 MMHG (79-93); ABG TCO2 16.1 MMOL/L (21.0-31.0)
[2021-08-31 17:29] LABS: ALLENS TEST YES-POS
[2021-08-31 17:30] LABS: INSPIRED O2 50%; PATIENT TEMP 36.2; VENTILATOR NO
[2021-08-31] MEDS: RT-ALBUTEROL/IPRATROPIUM 3 ML (DUONEB) VIAL INH SCH ×2 (18:54→21:41)
[2021-08-31] MEDS ORDERED: CEFEPIME INJECTION 2,000 MG in NS (IVPB) 50 ML IV SCH (21:00)
[2021-09-01] VITALS (14 sets, daily range): BP systolic 93–144; BP diastolic 47–80
[2021-09-01] MEDS: RT-ALBUTEROL/IPRATROPIUM 3 ML (DUONEB) VIAL INH SCH ×6 (02:34→21:41)
[2021-09-01 04:51] LABS: HEMATOCRIT 43 % (40-54); HEMOGLOBIN 13.9 g/dL (13.3-17.7); MEAN CORPUSCULAR HEMOGLOBIN 30 pg (25-34); MEAN CORPUSCULAR HGB CONC 32 g/dL (32-36); MEAN CORPUSCULAR VOLUME 93 fL (80-99); MEAN PLATELET VOLUME 10.4 fL (9.0-12.2); PLATELET COUNT 186 10^3/uL (130-400); WHITE BLOOD COUNT 8.4 10^3/uL (4.3-11.0)
[2021-09-01 05:09] LABS: POTASSIUM 4.8 MMOL/L (3.6-5.0)
[2021-09-01 05:10] LABS: CALCIUM 9.3 MG/DL (8.5-10.1)
[2021-09-01 05:15] LABS: CREATININE SERUM 1.01 MG/DL (0.60-1.30)
[2021-09-01] MEDS: POTASSIUM CL 10MEQ/50ML IVPB 50 ML IV SCH (05:40)
[2021-09-01] MEDS: KCL 20 MEQ TAB (K-DUR) PO SCH (05:41)
[2021-09-01] MEDS: MAGNESIUM 1 GM/100 ML IVPB 100 ML IV SCH (05:42)
[2021-09-01] MEDS: inSUlin ASPART (NovoLOG) 1 UNIT/0.01 ML (CHARGE PER UNIT) SC SCH ×4 (05:43→20:39)
[2021-09-01] MEDS: CEFEPIME 1,000 MG/NS 50 ML IVPB IV SCH ×6 (06:03→22:16)
--- NOTE | 2021-09-01 09:26 | Progress Note - Hospitalist ---
Subjective HPI/CC On Admission Date Seen by Provider: Sep 01, 2021 Time Seen by Provider: 09:24 Subjective/Events-last exam Pt reports feeling much better. No complaints. Off oxygen. Family at bedside. Focused Exam Lactate Level 08/31/21 10:05: Lactic Acid Level 3.79*H 08/31/21 12:13: Lactic Acid Level 2.53*H 08/31/21 14:34: Lactic Acid Level 1.47 Time of Focused Exam: 12:27 Objective Exam Vital Signs Vital Signs Date Time Temp Pulse Resp B/P (MAP) Pulse Ox O2 Delivery O2 Flow Rate FiO2 09/01/21 09:00 79 27 123/69 (87) 93 OxyMask 3.00 09/01/21 08:00 36.7 09/01/21 00:00 40 Capillary Refill : Less Than 3 Seconds General Appearance: No Apparent Distress, WD/WN Respiratory: No Accessory Muscle Use, No Respiratory Distress, Rhonci Cardiovascular: Regular Rate, Rhythm, No Murmur Gastrointestinal: Normal Bowel Sounds, Non Tender, Soft Neurologic/Psychiatric: Alert, Oriented x3 Results/Procedures Lab Laboratory Tests 08/31/21 10:05 09/01/21 04:43 Patient resulted labs reviewed. Imaging: Reviewed Imaging Report Assessment/Plan Assessment and Plan Assess & Plan/Chief Complaint Acute hypoxic respiratory failure due to multifocal pneumonia Off BiPAP, doing well Continue on IV abx MAT protocol Pulm/TeleICU consulted, appreciate recs Home oxygen study HTN BP remains low, trend Hold home meds NIDDMII Hold home metformin as he received contrast Fasting blood sugar 102 HLD Continue home meds DVT ppx: Lovenox Diagnosis/Problems Diagnosis/Problems (1) Acute respiratory failure with hypoxia Status: Acute (2) CKD (chronic kidney disease) Qualifiers: Chronic kidney disease stage: stage 3 (moderate) Chronic kidney disease stage 3 subtype: stage 3a (GFR 45-59) Qualified Codes: N18.31 - Chronic kidney disease, stage 3a (3) COPD (chronic obstructive pulmonary disease) Status: Chronic Qualifiers: COPD type: unspecified COPD Qualified Codes: J44.9 - Chronic obstructive pulmonary disease, unspecified (4) Essential (primary) hypertension Status: Chronic (5) HLD (hyperlipidemia) Status: Chronic Qualifiers: Hyperlipidemia type: unspecified Qualified Codes: E78.5 - Hyperlipidemia, unspecified (6) Non-insulin dependent type 2 diabetes mellitus Status: Chronic (7) Tobacco abuse Status: Chronic ARUNA JUNIOR MD Sep 01, 2021 09:26
--- NOTE | 2021-09-01 10:01 | Physical Therapy Evaluation ---
PT Evaluation-General Medical Diagnosis Admission Date Aug 31, 2021 at 12:28 Medical Diagnosis: Acute Respiratory Failure Onset Date: Aug 31, 2021 Therapy Diagnosis Therapy Diagnosis: Gait deficit, strength deficit Precautions Precautions/Isolations: Fall Prevention, Standard Precautions Weight Bear Status Right Lower Extremity: Right Full Weight Bearing Left Lower Extremity: Left Full Weight Bearing Referral Physician: Dr. Dempsey Reason for Referral: Evaluation/Treatment Medical History Reviewed History: Yes Social History Home: Single Level Current Living Status: Alone Entry Into Home: Stairs With Railing PT Steps Into Home: 4 Patient reports he lives alone, but his grandchildren are at his house often. Prior Prior Level of Function SCALE: Activities may be completed with or without assistive devices. 9-Mwokchchez-whphunt completes the activity by him/herself with no assistance from a helper. 5-Set-up or Clean-up Assistance-helper sets up or cleans up; patient completes activity. [place] assists only prior to or following the activity. 4-Supervision or Touching Assistance-helper provides verbal cues and/or touching/steadying and/or contact guard assistance as patient completes activity. Assistance may be provided throughout the activity or intermittently. 3-Partial/Moderate Assistance-helper does LESS THAN HALF the effort. [place] lifts, holds or supports trunk or limbs, but provides less than half the effort. 2-Substantial/Maximal Assistance-helper does MORE THAN HALF the effort. [place] lifts or holds trunk or limbs and provides more than half the effort. 3-Dixxiicsn-ikkxlh does ALL the effort. Patient does none of the effort to complete the activity. Or, the assistance of 2 or more helpers is required for the patient to complete the activity. If activity was not attempted, code reason: 7-Patient Refused. 9-Not Applicable-not attempted and the patient did not perform the activity before the current illness, exacerbation or injury. 10-Not Attempted due to Environmental Limitations-(lack of equipment, weather restraints, etc.). 88-Not Attempted due to Medical Conditions or Safety Concerns. Bed Mobility: 6 Transfers (B,C,W/C): 6 Gait: 6 Stairs: 6 Indoor Mobility (Ambulation): Independent Stairs: Independent Prior Devices Use: None PT Evaluation-Current Subjective Patient lying supine in bed upon PT arrival, agreeable to treatment. Rates pain currently at 0/10 Objective Patient Orientation: Person, Place, Time, Situation Attachments: IV ROM/Strength ROM Lower Extremities WFLs Strength Lower Extremities 4/5 bilaterally all planes Sensory Vision: Functional Hearing: Functional Sensation Right Lower Extremit: Intact Sensation Left Lower Extremity: Intact Transfers Roll Left to Right (QC): 4 Sit to Lying (QC): 4 Lying to Sitting/Side of Bed(Q: 4 Sit to Stand (QC): 4 Chair/Miv-qw-Cckzh Xfer(QC): 4 Gait Does the Patient Walk?: Yes Mode of Locomotion: Walk Anticipated Mode of Locomotion: Walk Walk 10 feet (QC): 4 Walk 50 ft with 2 Turns(QC): 4 Walk 150 ft (QC): 4 Distance: 1 Gait Assistive Device: FWW Balance Sitting Static: Good Sitting Dynamic: Good Standing Static: Fair Standing Dynamic: Fair Assessment/Needs Patient tolerated treatment well. Demonstrates SBA for all bed mobility and transfers. Patient ambulates 160 feet with FWW, with CGA and verbal cues for safety, posture, progression and conservation of energy. Patient ambulates with fair overall gait pattern and demonstrates fair endurance given recent diagnosis. Patient in chair post treatment with all needs met, nursing notified, call light in hand and family in the room. Rehab Potential: Good PT Steam Presser Goals Senior Living Goals PT Steam Presser Goals Time Frame: Sep 22, 2021 Roll Left & Right (QC): 6 Sit to Lying (QC): 6 Lying-Sitting on Side/Bed(QC): 6 Sit to Stand (QC): 6 Chair/Tkl-bo-Bxpky Xfer(QC): 6 Toilet Transfer (QC): 6 Does the Patient Walk: Yes Walk 10 feet (QC): 6 Walk 50ft with 2 Turns (QC): 6 Walk 150 ft (QC): 6 1 Step (curb) (QC): 4 4 Steps (QC): 4 12 Steps (QC): 4 PT Plan Problem List Problem List: Activity Tolerance, Functional Strength, Safety, Balance, Gait, Transfer, Bed Mobility Treatment/Plan Treatment Plan: Continue Plan of Care Treatment Plan: Bed Mobility, Education, Functional Activity Arlette, Functional Strength, Group Therapy, Gait, Safety, Therapeutic Exercise, Transfers Treatment Duration: October 20, 2021 Frequency: 6 times per week Estimated Hrs Per Day: .25 hour per day Patient and/or Family Agrees t: Yes Safety Risks/Education Patient Education: Gait Training Teaching Recipient: Patient Teaching Methods: Demonstration, Discussion Response to Teaching: Verbalize Understanding, Return Demonstration Discharge Recommendations Target Placement Home with assistance as needed. Time/GCodes Time In: 857 Time Out: 922 Total Billed Treatment Time: 25 Total Billed Treatment Visit, olimpia Herring JOHN A PT Sep 01, 2021 10:00
[2021-09-01] MEDS: AZITHROMYCIN INJECTION 500 MG in NS (IVPB) 250 ML IV SCH (14:30)
[2021-09-01] MEDS: ENOXAPARIN 40 MG/0.4 ML (LOVENOX) SYR SC SCH (14:30)
--- NOTE | 2021-09-01 17:27 | Tele-ICU Progress Note ---
Subjective Date Seen by a Provider: Sep 01, 2021 Time Seen by a Provider: 08:35 Subjective/Events-last exam (Tele-ICU Physician , Progress Note ) Available chart/ vitals / labs / Images reviewed Video assessment done using teleICU camera, rest of exam as per RN Discussed with RN , EXAM PER RN Events overnight : Afebrile FiO2 - 3 l I/O = neg Drips: Pressors: , hemodynamically stable Consultants: Hospital course: Consultants: Hospital course: 08/31 - ARF - BIPAP , PNA ( CTA -no pe) A/P Acute resp failure , hypoxic and hypercarbic - wason BIPAP in ER = WOB improving , will re-eval ANG at PNA - findings on CT are minimal infiltrates , but with elev PCT will cont agressiv e TX for PNA Elev lactate - with AG improving with hydration and oxugenation MERY ( with borderline K - follow with hydration ( lso recived contrast 08/31 Resp and met AG acidosis - due to avove - follow Elv DDIMER od 3 .2 - no PE on CTA 08/31 Lines : (Central Line Necessity Reviewed) Paz: OG: Nutrition: po Analgesia: Anxiety/ delirium VTE Prophylaxis: leila 40 Stress Ulcer Prophylaxis: po Plans in collaboration with bedside consultants and IM MDs. Discussed with RN to reach out if any questions or concerns A total of 32 minutes of critical care time was devoted to this patient today, required to treat and/or prevent further deterioration of critical care condition ( as above ) . Sepsis Event Evaluation Height, Weight, BMI Height: '" Weight: lbs. oz. kg; 28.40 BMI Method: Focused Exam Lactate Level 08/31/21 10:05: Lactic Acid Level 3.79*H 08/31/21 12:13: Lactic Acid Level 2.53*H 08/31/21 14:34: Lactic Acid Level 1.47 Time of Focused Exam: 12:27 Exam Exam Patient acknowledged, consented, and participated in this virtual visit which was conducted using real time audio/video Vital Signs Date Time Temp Pulse Resp B/P (MAP) Pulse Ox O2 Delivery O2 Flow Rate FiO2 09/01/21 16:00 37.0 88 22 105/67 (80) 98 Room Air 09/01/21 14:32 96 Room Air 09/01/21 12:42 81 09/01/21 11:47 36.4 86 28 105/61 (76) 92 Room Air 09/01/21 11:36 Room Air 09/01/21 10:25 90 Room Air 0.00 09/01/21 09:00 79 27 123/69 (87) 93 OxyMask 3.00 09/01/21 08:00 78 29 103/72 (82) 96 OxyMask 3.00 09/01/21 08:00 OxyMask 3.00 09/01/21 08:00 36.7 09/01/21 07:13 96 Room Air 0.00 09/01/21 07:06 99 OxyMask 3.00 09/01/21 07:00 80 24 115/64 (81) 97 OxyMask 3.00 09/01/21 07:00 82 09/01/21 06:00 72 25 114/64 (81) 100 OxyMask 3.00 09/01/21 05:37 36.3 OxyMask 3.00 09/01/21 05:00 72 25 94/67 (76) 97 OxyMask 5.00 09/01/21 04:00 67 23 96/65 (75) 95 OxyMask 5.00 09/01/21 04:00 OxyMask 3.00 09/01/21 03:00 67 26 93/67 (76) 100 OxyMask 5.00 09/01/21 02:36 99 OxyMask 3.00 09/01/21 02:00 68 24 103/67 (79) 100 OxyMask 5.00 09/01/21 01:00 74 15 144/80 (101) 100 OxyMask 5.00 09/01/21 01:00 84 09/01/21 01:00 36.5 OxyMask 5.00 09/01/21 00:00 NIV Bilevel 40 09/01/21 00:00 69 24 102/62 (75) 96 NIV Bilevel 40.00 08/31/21 23:00 79 18 134/79 (97) 96 NIV Bilevel 40.00 08/31/21 22:00 70 25 95/68 (77) 97 NIV Bilevel 40.00 08/31/21 21:41 67 27 95 40.00 08/31/21 21:00 66 29 88/66 (73) 96 NIV Bilevel 40.00 08/31/21 20:05 36.8 08/31/21 20:00 NIV Bilevel 50 08/31/21 20:00 71 28 94/67 (76) 96 NIV Bilevel 40.00 08/31/21 19:00 73 28 91/69 (76) 95 NIV Bilevel 40.00 08/31/21 19:00 80 08/31/21 18:54 73 30 94 50.00 08/31/21 18:00 73 37 88/60 (69) 96 OxyMask 10.00 I & O 09/01/21 07:00 Intake Total 950 ml Output Total 1875 ml Balance -925 ml Height & Weight Height: '" Weight: lbs. oz. kg; 28.40 BMI Method: General Appearance: No Apparent Distress, WD/WN HEENT: PERRL/EOMI, Moist Mucous Membranes Neck: Normal Inspection, Supple Respiratory: No Accessory Muscle Use, No Respiratory Distress, Rhonci Cardiovascular: Regular Rate, Rhythm, No Murmur Capillary Refill: Less Than 3 Seconds Peripheral Pulses: 2+ Radial Pulses (R), 2+ Radial Pulses (L) Gastrointestinal: normal bowel sounds, non tender, soft, no organomegaly Extremity: Normal Capillary Refill, No Calf Tenderness, No Pedal Edema Neurologic/Psychiatric: Alert, Oriented x3 Results Lab Laboratory Tests 08/31/21 10:05 09/01/21 04:43 Assessment/Plan Assessment/Plan ` YADIRA SANCHEZ MD Sep 01, 2021 17:27
[2021-09-01] MEDS: GEMFIBROZIL 600 MG (LOPID) TAB PO SCH (19:33)
[2021-09-01] MEDS: ASPIRIN E.C. 81 MG (ECOTRIN) TAB PO SCH (19:33)
[2021-09-01] MEDS: OMEGA 3 (FISH OIL) 1000 MG CAP PO SCH (19:33)
[2021-09-01] MEDS ORDERED: NON-FORMULARY MEDICATION 1 EA EA (Omega-3/Dha/Epa/Fish Oil (Fish Oil 1,000 mg Softgel) 2 E PO SCH (21:00)
[2021-09-02] MEDS ORDERED: dilTIAZem DRIP PRE-MIX 125 ML IV SCH (00:15)
[2021-09-02] MEDS ORDERED: ENOXAPARIN 80 MG/0.8 ML (LOVENOX) SYR ONE (00:20)
[2021-09-02] MEDS: ENOXAPARIN 80 MG/0.8 ML (LOVENOX) SYR SC SCH ×2 (00:22→13:17)
[2021-09-02 01:00] VITALS: BP 131/82
[2021-09-02 02:00] VITALS: BP 108/75
[2021-09-02] MEDS: RT-ALBUTEROL/IPRATROPIUM 3 ML (DUONEB) VIAL INH SCH ×6 (02:32→22:32)
[2021-09-02 03:00] VITALS: BP 105/60
--- NOTE | 2021-09-02 03:19 | Tele-ICU Progress Note ---
Progress Note 75 yo male transferred back to ICU with atrial fib. This was noticed on telemetry. Pt was placed on cardizem drip. Pt comfortable on NC oxygen, Afebrile, 105/68 Negative troponin on admit A/P Atrial fib on diltiazem, given lovenox I ordered f/u troponin, labs I spoke w bedside nurse Focused Exam Lactate Level 08/31/21 10:05: Lactic Acid Level 3.79*H 08/31/21 12:13: Lactic Acid Level 2.53*H 08/31/21 14:34: Lactic Acid Level 1.47 Height, Weight, BMI Height: '" Weight: lbs. oz. kg; 28.40 BMI Method: Time of Focused Exam: 12:27 Respiratory: No Accessory Muscle Use, No Respiratory Distress Skin: normal color Allergies Allergies Coded Allergies: No Known Drug Allergies (Unverified , 08/31/21) ALICE WAYNE MD Sep 02, 2021 03:18
[2021-09-02 03:58] LABS: HEMATOCRIT 43 % (40-54); HEMOGLOBIN 14.2 g/dL (13.3-17.7); MEAN CORPUSCULAR HEMOGLOBIN 30 pg (25-34); MEAN CORPUSCULAR HGB CONC 33 g/dL (32-36); MEAN CORPUSCULAR VOLUME 90 fL (80-99); MEAN PLATELET VOLUME 10.2 fL (9.0-12.2); PLATELET COUNT 182 10^3/uL (130-400); WHITE BLOOD COUNT 6.3 10^3/uL (4.3-11.0)
[2021-09-02 04:10] LABS: CHLORIDE 104 MMOL/L (98-107); POTASSIUM 4.4 MMOL/L (3.6-5.0); SODIUM 135 MMOL/L (135-145)
[2021-09-02 04:11] LABS: CALCIUM 9.1 MG/DL (8.5-10.1)
[2021-09-02 04:12] LABS: GLUCOSE 116 MG/DL (70-105)
[2021-09-02 04:13] LABS: CARBON DIOXIDE 14 MMOL/L (21-32)
[2021-09-02 04:15] LABS: PHOSPHORUS 1.9 MG/DL (2.3-4.7)
[2021-09-02 04:16] LABS: CREATININE SERUM 0.74 MG/DL (0.60-1.30); GFR ESTIMATED 96
[2021-09-02 04:17] LABS: BUN/CREATININE RATIO 32
[2021-09-02 04:18] LABS: MAGNESIUM 2.2 MG/DL (1.6-2.4)
[2021-09-02] MEDS: MAGNESIUM 1 GM/100 ML IVPB 100 ML IV SCH ×2 (06:06)
[2021-09-02] MEDS: POTASSIUM CL 10MEQ/50ML IVPB 50 ML IV SCH ×2 (06:06)
[2021-09-02] MEDS: KCL 20 MEQ TAB (K-DUR) PO SCH ×2 (06:07)
[2021-09-02] MEDS: inSUlin ASPART (NovoLOG) 1 UNIT/0.01 ML (CHARGE PER UNIT) SC SCH ×4 (06:07→21:11)
[2021-09-02] MEDS ORDERED: AMIODARONE FOR BOLUS 150 MG in NS (IVPB) 100 ML IV ONE (06:15)
[2021-09-02] MEDS: CEFEPIME 1,000 MG/NS 50 ML IVPB IV SCH ×6 (06:18→21:13)
[2021-09-02] MEDS ORDERED: D5W 100 ML IVPB 100 ML IV ONE (06:37)
[2021-09-02 06:55] VITALS: BP 130/83
[2021-09-02] MEDS: GEMFIBROZIL 600 MG (LOPID) TAB PO SCH ×2 (08:37→21:12)
--- NOTE | 2021-09-02 10:14 | Progress Note - Hospitalist ---
Subjective HPI/CC On Admission Date Seen by Provider: Sep 02, 2021 Time Seen by Provider: 10:12 Patient 75-year-old male who presented to the emergency department due to shortness of breath and cough. He states it started a day or 2 ago but worsened acutely today. He states his granddaughter brought him in as he was worsening. On arrival he was quite hypoxic with oxygen saturations in the 70s placed on OxiMask. He was quite hypoxic on ABG and was subsequently placed on BiPAP for work of breathing. CTA was done which was negative for PE but showed multifocal pneumonia. He was admitted to the ICU for further management and IV antibiotics. Subjective/Events-last exam Pt reports feeling well. No complaints. No SOB/CP/palpitations. overnight converted to a fib and transferred to ICU. Currently on cardizem gtt and s/p amio bolus. Focused Exam Lactate Level 08/31/21 10:05: Lactic Acid Level 3.79*H 08/31/21 12:13: Lactic Acid Level 2.53*H 08/31/21 14:34: Lactic Acid Level 1.47 Time of Focused Exam: 12:27 Objective Exam Vital Signs Vital Signs Date Time Temp Pulse Resp B/P (MAP) Pulse Ox O2 Delivery O2 Flow Rate FiO2 09/02/21 09:00 75 34 126/83 92 Room Air 09/02/21 07:50 3.00 09/02/21 07:34 36.7 09/01/21 00:00 40 Capillary Refill : Less Than 3 Seconds General Appearance: No Apparent Distress, WD/WN Respiratory: Lungs Clear, No Respiratory Distress Cardiovascular: No Murmur, Irregularly Irregular Gastrointestinal: Normal Bowel Sounds, Non Tender, Soft Neurologic/Psychiatric: Alert, Oriented x3 Results/Procedures Lab Laboratory Tests 09/02/21 03:50 Patient resulted labs reviewed. Imaging: Reviewed Imaging Report Assessment/Plan Assessment and Plan Assess & Plan/Chief Complaint Acute hypoxic respiratory failure due to multifocal pneumonia On room air now Continue on abx MAT protocol Pulm/TeleICU consulted, appreciate recs Home oxygen study- no need New onset a fib Converted overnight and transferred back to ICU Cardiology consulted, appreciate recs Amiodarone bolus given this AM Continue on telemetry increase Lovenox to therapeutic dosing HTN BP stable with cardizem, trend NIDDMII Hold home metformin as he received contrast Fasting blood sugar 116 HLD Continue home meds DVT ppx: Lovenox Diagnosis/Problems Diagnosis/Problems (1) Acute respiratory failure with hypoxia Status: Acute (2) CKD (chronic kidney disease) Qualifiers: Chronic kidney disease stage: stage 3 (moderate) Chronic kidney disease stage 3 subtype: stage 3a (GFR 45-59) Qualified Codes: N18.31 - Chronic kidney disease, stage 3a (3) COPD (chronic obstructive pulmonary disease) Status: Chronic Qualifiers: COPD type: unspecified COPD Qualified Codes: J44.9 - Chronic obstructive pulmonary disease, unspecified (4) Essential (primary) hypertension Status: Chronic (5) HLD (hyperlipidemia) Status: Chronic Qualifiers: Hyperlipidemia type: unspecified Qualified Codes: E78.5 - Hyperlipidemia, unspecified (6) Non-insulin dependent type 2 diabetes mellitus Status: Chronic (7) Tobacco abuse Status: Chronic ARUNA JUNIOR MD Sep 02, 2021 10:14
--- NOTE | 2021-09-02 14:28 | Conscious Sedation/ASA ---
Conscious Sedation Pre-Proced Time 14:27 ASA Score 3 For ASA 3 and 4: Consider anesthesia and medical clearance. Also, for patients with a history of failed moderate sedation consider anesthesia. Airway Lungs Heart ASA score ASA 1: a normal healthy patient ASA 2: a patient with a mild systemic disease (mid diabetes, controlled hypertension, obesity x ASA 3: a patient with a severe systemic disease that limits activity (angina, COPD, prior Myocardial infarction) ASA 4: a patient with an incapacitating disease that is a constant threat to life (CHF, renal failure) ASA 5: a moribund patient not expected to survive 24 hrs. (ruptured aneurysm) ASA 6: a declared brain- patient whose organs are being harvested. For emergent operations, add the letter E after the classification Mallampati Classification Grade 3 Sedation Plan Analgesia, Amnesia, Plan communicated to team members, Discussed options with patient/fam, Discussed risks with patient/fam The patient is an appropriate candidate to undergo the planned procedure, sedation, and anesthesia. The patient immediately re-assessed prior to indication. KENIA JONES MD Sep 02, 2021 14:27
--- NOTE | 2021-09-02 14:52 | Consultation-Cardiology ---
HPI-Cardiology Cardiology Consultation Date of Consultation 09/02/21 Date of Admission Time Seen by Provider: 14:48 Indication: Atrial flutter HPI 75-year-old gentleman who was admitted for pneumonia, was in acute respiratory failure and was recovering slowly, transfer to medical floor then at night he went to atrial flutter with borderline tachycardia, he was started on Cardizem drip which improved his heart rate but continued to be in atrial flutter. On my evaluation he was laying down comfortably, still in atrial flutter. Denied any chest pain. No palpitation. Home Medications & Allergies Allergies: Coded Allergies: No Known Drug Allergies (Unverified , 08/31/21) Home Medication List Reviewed: Yes [id number] Hx Patient Social History Marital Status: Employed/Student: retired Smoking Status: Current Everyday Smoker (Pack per day) Have you traveled recently?: No Alcohol Use?: Yes Past Medical History Discussed below Family Medical History Family Medical Hx Noncontributory Review of Systems-General Review of Systems Constitutional: see HPI; No chills, No fever EENTM: no symptoms reported Respiratory: cough, dyspnea on exertion; No hemoptysis; short of breath Cardiovascular: see HPI; No chest pain, No edema, No palpitations Gastrointestinal: no symptoms reported, see HPI; No abdominal pain, No constipation, No diarrhea, No nausea, No vomiting Genitourinary: no symptoms reported, see HPI; No dysuria, No frequency Musculoskeletal: no symptoms reported, see HPI Skin: no symptoms reported, see HPI Psychiatric/Neurological: No Symptoms Reported, See HPI All Other Systems Reviewed Negative Unless Noted: Yes Reviewed Test Results Reviewed Test Results Lab Laboratory Tests Test 09/01/21 15:57 09/01/21 20:19 09/02/21 03:50 09/02/21 10:46 Range/Units Glucometer 148 H 134 H 167 H 70-110 MG/DL White Blood Count 6.3 4.3-11.0 10^3/uL Red Blood Count 4.82 4.30-5.52 10^6/uL Hemoglobin 14.2 13.3-17.7 g/dL Hematocrit 43 40-54 % Mean Corpuscular Volume 90 80-99 fL Mean Corpuscular Hemoglobin 30 25-34 pg Mean Corpuscular Hemoglobin Concent 33 32-36 g/dL Red Cell Distribution Width 14.6 H 10.0-14.5 % Platelet Count 182 130-400 10^3/uL Mean Platelet Volume 10.2 9.0-12.2 fL Sodium Level 135 135-145 MMOL/L Potassium Level 4.4 3.6-5.0 MMOL/L Chloride Level 104 98-107 MMOL/L Carbon Dioxide Level 14 L 21-32 MMOL/L Anion Gap 17 H 5-14 MMOL/L Blood Urea Nitrogen 24 H 7-18 MG/DL Creatinine 0.74 0.60-1.30 MG/DL Estimat Glomerular Filtration Rate 96 BUN/Creatinine Ratio 32 Glucose Level 116 H 70-105 MG/DL Calcium Level 9.1 8.5-10.1 MG/DL Phosphorus Level 1.9 L 2.3-4.7 MG/DL Magnesium Level 2.2 1.6-2.4 MG/DL Troponin I < 0.028 <0.028 NG/ML Physical Exam Physical Exam Vital Signs Vital Signs - First Documented 08/31/21 08/31/21 08/31/21 09:58 10:01 14:40 Temp 37.5 Pulse 117 Resp 35 B/P (MAP) 110/86 (94) Pulse Ox 79 O2 Delivery Room Air O2 Flow Rate 10.00 FiO2 60 Capillary Refill : Less Than 3 Seconds Height, Weight, BMI Height: '" Weight: lbs. oz. kg; 28.40 BMI Method: General Appearance: No Apparent Distress, WD/WN Eyes: Bilateral Eye Normal Inspection, Bilateral Eye PERRL, Bilateral Eye EOMI HEENT: PERRL/EOMI, Moist Mucous Membranes Neck: Normal Inspection, Supple Respiratory: Lungs Clear, No Respiratory Distress Cardiovascular: No Murmur, Irregularly Irregular Gastrointestinal: Normal Bowel Sounds, Non Tender, Soft Back: Normal Inspection, No CVA Tenderness, No Vertebral Tenderness Extremity: Normal Capillary Refill, No Calf Tenderness, No Pedal Edema Neurologic/Psychiatric: Alert, Oriented x3 Skin: Normal Color, Warm/Dry Lymphatic: No Adenopathy A/P-Cardiology Admission Diagnosis Atrial flutter Hypertension Hyperlipidemia Diabetes mellitus Assessment/Plan New onset atrial flutter, controlled rate. Maintained on Cardizem drip, given 1 dose of amiodarone 150 mg without success. Started on Lovenox after having atrial flutter, planning to evaluate 2D echo I am planning to proceed with cardioversion Pneumonia, status post acute respiratory failure, improved, responding well to treatment. Feeling better Hypertension, continue current medication monitor blood pressure Hyperlipidemia, maintained on atorvastatin. Continue to monitor lipids Diabetes mellitus, followed and managed by primary care physician KENIA JONES MD Sep 02, 2021 14:52
[2021-09-02] MEDS ORDERED: proPOfol 200 MG/20 ML (DIPRIVAN) VIAL IV ONE (14:55)
--- NOTE | 2021-09-02 15:07 | Cardioversion ---
Cardioversion PROCEDURE PHYSICIAN: Kenia Angel DATE OF PROCEDURE: 09/02/21 DIRECT EXTERNAL ELECTRICAL CARDIOVERSION: Indications: Atrial Flutter Preoperative diagnoses: Atrial Flutte Postoperative diagnosis: Sinus rhythm, Successful Electrical Cardioversion History: Anesthesia: By Anesthesia services Complications: None Specimen: None Contrast: 0 Flouroscopy: none Procedure Details: The patient was brought the woods laborer after informed consent was taken, all the risks and complications were explained including the risk of stroke. Electrical cardioversion was carried out with anesthesia support with propofol. 50 joules of synchronized shock was delivered through external patches which promptly restored sinus rhythm. The patient tolerated the procedure well. Conclusions: Successful Cardioversion in terminating atrial flutter KENIA ANGEL MD Sep 02, 2021 15:06
--- NOTE | 2021-09-02 15:20 | Anesthesia-General Post-Op ---
MAC Patient Condition Mental Status/LOC: Same as Preop Cardiovascular: Satisfactory Nausea/Vomiting: Absent Respiratory: Satisfactory Pain: Controlled Complications: Absent Post Op Complications Complications None Follow Up Care/Instructions Patient Instructions None needed. Anesthesiology Discharge Order Discharge Order Patient is doing well, no complaints, stable vital signs, no apparent adverse anesthesia problems. No complications reported per nursing. MARCUS HORN CRNA Sep 02, 2021 15:20
--- NOTE | 2021-09-02 15:52 | Tele-ICU Progress Note ---
Subjective Date Seen by a Provider: Sep 02, 2021 Time Seen by a Provider: 15:51 Subjective/Events-last exam (Tele-ICU Physician , Progress Note ) Available chart/ vitals / labs / Images reviewed Video assessment done using teleICU camera, rest of exam as per RN Discussed with RN , EXAM PER RN Events overnight : a flatter Afebrile FiO2 - 3 l I/O = neg Drips: Pressors: , hemodynamically stable Consultants: Hospital course: Consultants: Hospital course: 08/31 - ARF - BIPAP , PNA ( CTA -no pe) 09/02 - aflatted RVR , cardizem gtt started , amio x1 , s/p Successful Cardioversion A/P Acute resp failure , hypoxic and hypercarbic - off BIPAP = 3 L now PNA - findings on CT are minimal infiltrates , but with elev PCT will cont agressive TX for PNA - cefepime , z max afib RVR 09/02 - cardizem gtt started = 08/24- s/p Successful Cardioversion - Lovenox increased to 80 bid Elev lactate - with AG improving with hydration and oxugenation MERY ( with borderline K - follow with hydration ( also recived contrast 08/31 Resp and met AG acidosis - due to avove - follow Elv DDIMER of 3 .2 - no PE on CTA 08/31 Lines : (Central Line Necessity Reviewed) Paz: OG: Nutrition: po Analgesia: Anxiety/ delirium VTE Prophylaxis: leila 80 Stress Ulcer Prophylaxis: po Plans in collaboration with bedside consultants and IM MDs. Discussed with RN to reach out if any questions or concerns A total of 32 minutes of critical care time was devoted to this patient today, required to treat and/or prevent further deterioration of critical care condition ( as above ) . Sepsis Event Evaluation Height, Weight, BMI Height: '" Weight: lbs. oz. kg; 28.40 BMI Method: Focused Exam Lactate Level 08/31/21 10:05: Lactic Acid Level 3.79*H 08/31/21 12:13: Lactic Acid Level 2.53*H 08/31/21 14:34: Lactic Acid Level 1.47 Time of Focused Exam: 12:27 Exam Exam Patient acknowledged, consented, and participated in this virtual visit which w as conducted using real time audio/video Vital Signs Date Time Temp Pulse Resp B/P (MAP) Pulse Ox O2 Delivery O2 Flow Rate FiO2 09/02/21 15:00 79 35 137/83 94 Room Air 09/02/21 14:46 93 Nasal Cannula 4.00 09/02/21 14:00 78 36 138/92 93 Room Air 09/02/21 13:02 Nasal Cannula 3.00 09/02/21 13:00 78 31 146/89 93 Room Air 09/02/21 12:51 78 09/02/21 12:00 Nasal Cannula 3.00 09/02/21 12:00 77 31 131/81 92 Room Air 09/02/21 11:37 36.0 76 24 130/76 92 Room Air 09/02/21 11:00 76 25 131/80 94 Room Air 09/02/21 10:36 93 Nasal Cannula 4.00 09/02/21 10:00 75 21 117/79 93 Room Air 09/02/21 09:00 75 34 126/83 92 Room Air 09/02/21 08:00 74 19 111/69 94 Room Air 09/02/21 07:50 Nasal Cannula 3.00 09/02/21 07:34 36.7 73 26 129/75 93 Room Air 09/02/21 07:00 80 26 120/70 91 Room Air 09/02/21 07:00 79 09/02/21 06:55 81 130/83 09/02/21 06:41 92 Nasal Cannula 4.00 09/02/21 06:00 82 29 109/69 93 Room Air 09/02/21 05:00 82 29 104/73 92 Room Air 09/02/21 04:00 36.8 09/02/21 04:00 81 24 114/71 92 Room Air 09/02/21 04:00 Nasal Cannula 3.00 09/02/21 03:00 81 26 114/71 92 Room Air 09/02/21 03:00 81 36 105/60 (75) 92 Nasal Cannula 3.00 09/02/21 02:32 92 Nasal Cannula 4.00 09/02/21 02:00 79 30 108/75 (86) 90 Nasal Cannula 3.00 09/02/21 02:00 79 30 108/75 90 Room Air 09/02/21 01:00 98 09/02/21 01:00 90 23 131/82 (98) 92 Nasal Cannula 3.00 09/02/21 01:00 90 23 131/82 92 Room Air 09/02/21 00:12 97 09/02/21 00:00 Nasal Cannula 3.00 09/01/21 23:00 36.7 75 24 105/68 (80) 90 Nasal Cannula 3.00 09/01/21 22:23 87 Room Air 09/01/21 22:23 90 Nasal Cannula 3.00 09/01/21 21:41 91 Room Air 09/01/21 19:35 Room Air 09/01/21 19:24 37.2 80 22 98/47 (64) 92 Room Air 09/01/21 19:00 79 09/01/21 18:48 98 Room Air 09/01/21 16:00 37.0 88 22 105/67 (80) 98 Room Air I & O 09/02/21 07:00 Intake Total 2252 ml Output Total 1000 ml Balance 1252 ml Height & Weight Height: '" Weight: lbs. oz. kg; 28.40 BMI Method: General Appearance: No Apparent Distress, WD/WN HEENT: PERRL/EOMI, Moist Mucous Membranes Neck: Normal Inspection, Supple Respiratory: Lungs Clear, No Respiratory Distress Cardiovascular: No Murmur, Irregularly Irregular Capillary Refill: Less Than 3 Seconds Peripheral Pulses: 2+ Radial Pulses (R), 2+ Radial Pulses (L) Gastrointestinal: normal bowel sounds, non tender, soft, no organomegaly Extremity: Normal Capillary Refill, No Calf Tenderness, No Pedal Edema Neurologic/Psychiatric: Alert, Oriented x3 Skin: Normal Color, Warm/Dry Lymphatic: No Adenopathy Results Lab Laboratory Tests 09/01/21 04:43 09/02/21 03:50 Assessment/Plan Assessment/Plan ` YADIRA SANCHEZ MD Sep 02, 2021 15:52
[2021-09-02] MEDS: AZITHROMYCIN INJECTION 500 MG in NS (IVPB) 250 ML IV SCH (15:57)
[2021-09-02] MEDS: ASPIRIN E.C. 81 MG (ECOTRIN) TAB PO SCH (21:12)
[2021-09-02] MEDS: OMEGA 3 (FISH OIL) 1000 MG CAP PO SCH (21:12)
[2021-09-03] MEDS: ENOXAPARIN 80 MG/0.8 ML (LOVENOX) SYR SC SCH (00:15)
[2021-09-03] MEDS: RT-ALBUTEROL/IPRATROPIUM 3 ML (DUONEB) VIAL INH SCH ×3 (02:54→10:48)
[2021-09-03 05:05] LABS: HEMATOCRIT 41 % (40-54); HEMOGLOBIN 13.7 g/dL (13.3-17.7); MEAN CORPUSCULAR HEMOGLOBIN 30 pg (25-34); MEAN CORPUSCULAR HGB CONC 34 g/dL (32-36); MEAN CORPUSCULAR VOLUME 90 fL (80-99); MEAN PLATELET VOLUME 10.3 fL (9.0-12.2); PLATELET COUNT 211 10^3/uL (130-400); WHITE BLOOD COUNT 5.3 10^3/uL (4.3-11.0)
[2021-09-03 05:16] LABS: POTASSIUM 4.8 MMOL/L (3.6-5.0)
[2021-09-03 05:17] LABS: CALCIUM 9.3 MG/DL (8.5-10.1)
[2021-09-03 05:22] LABS: CREATININE SERUM 0.79 MG/DL (0.60-1.30)
[2021-09-03] MEDS: inSUlin ASPART (NovoLOG) 1 UNIT/0.01 ML (CHARGE PER UNIT) SC SCH ×2 (07:04→11:38)
[2021-09-03] MEDS: POTASSIUM CL 10MEQ/50ML IVPB 50 ML IV SCH ×2 (07:04)
[2021-09-03] MEDS: KCL 20 MEQ TAB (K-DUR) PO SCH ×2 (07:04)
[2021-09-03] MEDS: MAGNESIUM 1 GM/100 ML IVPB 100 ML IV SCH ×2 (07:04)
[2021-09-03] MEDS: GEMFIBROZIL 600 MG (LOPID) TAB PO SCH (07:53)
[2021-09-03] MEDS: CEFEPIME 1,000 MG/NS 50 ML IVPB IV SCH ×2 (07:55)
--- NOTE | 2021-09-03 08:41 | Cardiology Progress Note ---
Subjective Date Seen by Provider: Sep 03, 2021 Time Seen by Provider: 08:39 Subjective/Events-last exam Patient was seen at bedside, sitting comfortably and eating breakfast Feeling better today. No new complaint. Review of Systems General: No Chills, No Night Sweats, No Fatigue, No Malaise, No Appetite, No Other HEENT: No Head Aches, No Visual Changes, No Eye Pain, No Ear Pain, No Dysphasia, No Sinus Congestion, No Post Nasal Drip, No Sore Throat, No Other Pulmonary: No Dyspnea, No Cough, No Pleuritic Chest Pain, No Other Cardiovascular: No: Chest Pain, Palpitations, Orthopnea, Paroxysmal Noc. Dyspnea, Edema, Lt Headedness, Other Focused Exam Lactate Level 08/31/21 10:05: Lactic Acid Level 3.79*H 08/31/21 12:13: Lactic Acid Level 2.53*H 08/31/21 14:34: Lactic Acid Level 1.47 Time of Focused Exam: 12:27 Objective-Cardiology Exam Last Set of Vital Signs Vital Signs 09/01/21 09/03/21 09/03/21 09/03/21 09/03/21 00:00 06:00 07:04 07:59 08:00 Temp 36.0 Pulse 62 Resp 23 B/P (MAP) 134/81 Pulse Ox 95 O2 Delivery Nasal Cannula O2 Flow Rate 1.00 FiO2 40 I&O Intake and Output 09/03/21 00:00 Intake Total 1350 ml Output Total 2200 ml Balance -850 ml Intake Oral 1350 ml Output Urine Total 2200 ml General: Alert, Oriented X3, Cooperative HEENT: Atraumatic, PERRLA Neck: Supple, No JVD, No Thyromegaly Lungs: Clear to Auscultation, Normal Air Movement Heart: Regular Rate, Normal S1, Normal S2, No Murmurs Abdomen: Normal Bowel Sounds, Soft, No Tenderness, No Hepatosplenomegaly, No Masses Extremities: No Clubbing, No Cyanosis, No Edema, Normal Pulses, No Tenderness/Swelling Skin: No Rashes, No Breakdown, No Significant Lesion Neuro: Normal Gait, Normal Speech, Strength at 5/5 X4 Ext, Normal Tone, Sensation Intact Psych/Mental Status: Mental Status NL, Mood NL Results Lab Laboratory Tests 09/03/21 04:45 A/P-Cardiology Admission Diagnosis Atrial flutter Hypertension Hyperlipidemia Diabetes mellitus Assessment/Plan New onset atrial flutter, rate was controlled. Underwent electrical cardioversion and has been maintaining sinus rhythm. Continue on current medication [id number] score 3, I will switch him to Xarelto Pneumonia, status post acute respiratory failure, improved, responding well to treatment. Feeling better Hypertension, controlled, continue current medications Hyperlipidemia, maintained on atorvastatin. Continue to monitor lipids Diabetes mellitus, followed and managed by primary care physician Okay for discharge and follow-up as an outpatient KENIA JONES MD Sep 03, 2021 08:41
[2021-09-03] MEDS ORDERED: AZITHROMYCIN 250 MG TAB (ZITHROMAX) PO SCH (09:00)
[2021-09-03] MEDS ORDERED: CEFDINIR 300 MG (OMNICEF) CAP PO SCH (09:00)
[2021-09-03] MEDS ORDERED: APIXABAN 5 MG (ELIQUIS) TABLET PO SCH (09:00)
--- NOTE | 2021-09-03 09:07 | Physical Therapy Daily Note ---
PT Daily Note-Current Subjective Upon arrival pt was seated on EOB, pt agrees to PT. Pt SAO2 were in the 90s upon beginning tx session. Mental Status Patient Orientation: Person, Time, Situation, Normal For Age Attachments: IV Transfers SCALE: Activities may be completed with or without assistive devices. 7-Irayhkilql-wrluyqe completes the activity by him/herself with no assistance from a helper. 5-Set-up or Clean-up Assistance-helper sets up or cleans up; patient completes activity. Kenna assists only prior to or following the activity. 4-Supervision or Touching Assistance-helper provides verbal cues and/or touching/steadying and/or contact guard assistance as patient completes activity. Assistance may be provided throughout the activity or intermittently. 3-Partial/Moderate Assistance-helper does LESS THAN HALF the effort. Kenna lifts, holds or supports trunk or limbs, but provides less than half the effort. 2-Substantial/Maximal Assistance-helper does MORE THAN HALF the effort. Kenna lifts or holds trunk or limbs and provides more than half the effort. 5-Hkupigdho-rjlrpe does ALL the effort. Patient does none of the effort to complete the activity. Or, the assistance of 2 or more helpers is required for the patient to complete the activity. If activity was not attempted, code reason: 7-Patient Refused. 9-Not Applicable-not attempted and the patient did not perform the activity before the current illness, exacerbation or injury. 10-Not Attempted due to Environmental Limitations-(lack of equipment, weather restraints, etc.). 88-Not Attempted due to Medical Conditions or Safety Concerns. Sit to Stand (QC): 6 Weight Bearing Right Lower Extremity: Right Full Weight Bearing Left Lower Extremity: Left Full Weight Bearing Gait Training Does the Patient Walk?: Yes Distance: 600' Walk 10 feet (QC): 6 Walk 50 ft with 2 Turns(QC): 6 Walk 150 ft (QC): 6 Gait Assistive Device: None Pt had steady gait. Pt ambulated without FWW. Pt had no LOB. Treatments Pts tx session was focused on ambulation, and activity tolerance. Pt ambulated around arias 2x without O2, equaling 600'. During GT therapist checks pts SAO2, that remained in the 90s. Pt tolerated tx session very well. Prior to tx session pt was seated in recliner, all needs were met, with call light in reach. Assessment Current Status: Excellent Progress Pt will be DC from PT services, due to pts PLOF being within normal limits, and pts activity tolerance is also within normal limits. RT notified of SAO2 levels on RA with >6 minutes of activity. PT Detention Goals Drying Equipment Operator Goals PT Detention Goals Time Frame: Sep 22, 2021 Roll Left & Right (QC): 6 Sit to Lying (QC): 6 Lying-Sitting on Side/Bed(QC): 6 Sit to Stand (QC): 6 Chair/Tpf-tv-Ddphw Xfer(QC): 6 Toilet Transfer (QC): 6 Does the Patient Walk: Yes Walk 10 feet (QC): 6 Walk 50ft with 2 Turns (QC): 6 Walk 150 ft (QC): 6 1 Step (curb) (QC): 4 4 Steps (QC): 4 12 Steps (QC): 4 PT Plan Problem List Problem List: Functional Strength Treatment/Plan Treatment Plan: Discontinue PT, goals met Treatment Plan: Bed Mobility, Education, Functional Activity Arlette, Functional Strength, Group Therapy, Gait, Safety, Therapeutic Exercise, Transfers Treatment Duration: October 20, 2021 Frequency: 6 times per week Estimated Hrs Per Day: .25 hour per day Patient and/or Family Agrees t: Yes Time/GCodes Time In: 811 Time Out: 827 Total Billed Treatment Time: 16 Total Billed Treatment 1, FA (16) GALINA GUTIERREZ MULTIFOCAL BUTTON GRINDER Sep 03, 2021 09:07
[2021-09-03] MEDS ORDERED: CEFD300C3 PO (11:03)
[2021-09-03] MEDS ORDERED: RIVA20TA2 PO (11:03)
[2021-09-03] MEDS ORDERED: MTP25TSR PO (11:03)
[2021-09-03] MEDS ORDERED: RIVAROXABAN 20 MG TABLET (XARELTO) PO SCH (17:00)
--- NOTE | 2021-09-03 17:56 | Discharge Summary ---
Discharge Summary Hospital Course Problems/Dx: (1) Severe sepsis Status: Acute (2) Pneumonia Status: Acute Qualifiers: Qualified Codes: J18.9 - Pneumonia, unspecified organism (3) Atrial flutter Status: Acute Qualifiers: Qualified Codes: I48.92 - Unspecified atrial flutter (4) Acute respiratory failure with hypoxia Status: Acute (5) CKD (chronic kidney disease) Qualifiers: Qualified Codes: N18.31 - Chronic kidney disease, stage 3a (6) COPD (chronic obstructive pulmonary disease) Status: Chronic Qualifiers: Qualified Codes: J44.9 - Chronic obstructive pulmonary disease, unspecified (7) Essential (primary) hypertension Status: Chronic (8) HLD (hyperlipidemia) Status: Chronic Qualifiers: Qualified Codes: E78.5 - Hyperlipidemia, unspecified (9) Non-insulin dependent type 2 diabetes mellitus Status: Chronic (10) Tobacco abuse Status: Chronic Hospital Course Date of Admission: Aug 31, 2021 at 12:28 Admission Diagnosis : Severe sepsis due to pneumonia Family Physician/Provider: Ricky Bourgeois DO Date of Discharge: 09/03/21 Discharge Diagnosis: Severe sepsis due to pneumonia, atrial flutter with RVR Hospital Course: Ziggy Davis is a 75 year old male with PMH HTN, T2DM, HLD, COPD, tobacco abuse, who was admitted with severe sepsis due to pneumonia. He was treated with IV antibiotics and improved. He was transitioned to oral Omnicef on discharge. He was requiring 2 L with exertion and was set up with home oxygen. His course was complicated by atrial flutter with RVR. He was given IV amiodarone but remained in atrial flutter. Cardiology performed cardioversion and he returned to normal sinus rhythm. He was started on Metoprolol for rate control. He was started on Xarelto for stroke prophylaxis. He should follow up with his PCP and Cardiology. He was discharged home in stable condition. Labs and Pending Lab Test: Laboratory Tests 09/02/21 20:59: Glucometer 162H 09/03/21 04:45: White Blood Count 5.3, Red Blood Count 4.53, Hemoglobin 13.7, Hematocrit 41, Mean Corpuscular Volume 90, Mean Corpuscular Hemoglobin 30, Mean Corpuscular Hemoglobin Concent 34, Red Cell Distribution Width 14.5, Platelet Count 211, Mean Platelet Volume 10.3, Sodium Level 136, Potassium Level 4.8, Chloride Level 102, Carbon Dioxide Level 19L, Anion Gap 15H, Blood Urea Nitrogen 19H, Creatinine 0.79, Estimat Glomerular Filtration Rate 94, BUN/Creatinine Ratio 24, Glucose Level 138H, Calcium Level 9.3 09/03/21 11:00: Glucometer 309H Microbiology 08/31/21 MRSA Screen - Final, Complete MRSA not isolated 08/31/21 Urine Culture - Final, Complete YEAST 08/31/21 Blood Culture - Preliminary, Resulted No growth Home Meds Active Metoprolol Succinate 25 Mg Tab.er.24h 25 Mg PO DAILY 30 Days Xarelto Tablet (Rivaroxaban) 20 Mg Tablet 20 Mg PO DAILY@1700 90 Days Cefdinir 300 Mg Capsule 300 Mg PO BID 4 Days Reported Aspirin EC (Aspirin) 81 Mg Tablet.dr 81 Mg PO HS Fish Oil 1,000 mg Softgel ([place]-3/Dha/Epa/Fish Oil) 1 Each Capsule 2 Each PO BID Atorvastatin Calcium 40 Mg Tablet 40 Mg PO HS Enalapril Maleate 20 Mg Tablet 20 Mg PO HS Metformin HCl 500 Mg Tablet 1,000 Mg PO BID WITH MEALS TAKES 2 (500MG) TABS Gemfibrozil 600 Mg Tablet 600 Mg PO BID Assessment/Pt Instructions See instructions Discharge Planning: >30 minutes discharge planning Discharge Instructions Discharge Diet: Low Sodium Diet Activity as Tolerated: Yes Consultations Cardiology Discharge Physical Examination Vital Signs Vital Signs Date Time Temp Pulse Resp B/P (MAP) Pulse Ox O2 Delivery O2 Flow Rate FiO2 09/03/21 14:00 80 33 131/87 90 Room Air 09/03/21 12:00 36.0 09/03/21 12:00 1.00 09/01/21 00:00 40 General Appearance: No Apparent Distress, WD/WN Respiratory: Lungs Clear, No Respiratory Distress Cardiovascular: Regular Rate, Rhythm, No Murmur Gastrointestinal: Normal Bowel Sounds, Soft Extremity: Normal Inspection, No Pedal Edema Skin: Normal Color, Warm/Dry Neurologic/Psychiatric: Alert, Normal Mood/Affect Allergies: Coded Allergies: No Known Drug Allergies (Unverified , 08/31/21) Copy Copies To 1: RICKY BOURGEOIS DO Discharge Summary Date of Admission Aug 31, 2021 at 12:28 Date of Discharge Sep 03, 2021 at 14:30 Discharge Date: Sep 03, 2021 Discharge Time: 14:30 Admission Diagnosis Acute hypoxic respiratory failure due to multifocal pneumonia Consults/Procedures Consulations Cardiology Procedures Cardioversion Discharge Diagnosis (1) Severe sepsis Status: Acute (2) Pneumonia Status: Acute Qualifiers: Qualified Codes: J18.9 - Pneumonia, unspecified organism (3) Atrial flutter Status: Acute Qualifiers: Qualified Codes: I48.92 - Unspecified atrial flutter (4) Acute respiratory failure with hypoxia Status: Acute (5) CKD (chronic kidney disease) Qualifiers: Qualified Codes: N18.31 - Chronic kidney disease, stage 3a (6) COPD (chronic obstructive pulmonary disease) Status: Chronic Qualifiers: Qualified Codes: J44.9 - Chronic obstructive pulmonary disease, unspecified (7) Essential (primary) hypertension Status: Chronic (8) HLD (hyperlipidemia) Status: Chronic Qualifiers: Qualified Codes: E78.5 - Hyperlipidemia, unspecified (9) Non-insulin dependent type 2 diabetes mellitus Status: Chronic (10) Tobacco abuse Status: Chronic NIMA ARMAS MD Sep 03, 2021 17:56
== END 2021-09-03 14:30 | disposition home or self-care (01) | DRG 871 ==
LOC: EDUNIT# 09:58 → ER 09:59 → ICU 12:28 → 4TH 09-01 10:38 → ICU 09-02 01:00
PROVIDERS: ADMIT Family Medicine; ATTEND Internal Medicine
PROC: 5A2204Z Restoration of Cardiac Rhythm, Single (ICD-10-PCS; principal; 2021-09-02)
DX: A41.9 Sepsis, unspecified organism (principal); J18.9 Pneumonia, unspecified organism; J96.01 Acute respiratory failure with hypoxia; J96.02 Acute respiratory failure with hypercapnia; N17.9 Acute kidney failure, unspecified; I48.92 Unspecified atrial flutter; E87.4 Mixed disorder of acid-base balance; R65.20 Severe sepsis without septic shock; Z20.822 Contact with and (suspected) exposure to COVID-19; J44.9 Chronic obstructive pulmonary disease, unspecified; I48.91 Unspecified atrial fibrillation; I12.9 Hypertensive chronic kidney disease with stage 1 through stage 4 chronic kidney disease, or unspecified chronic kidney disease; E11.22 Type 2 diabetes mellitus with diabetic chronic kidney disease; N18.31 Chronic kidney disease, stage 3a; F17.210 Nicotine dependence, cigarettes, uncomplicated; E78.5 Hyperlipidemia, unspecified; Z79.84 Long term (current) use of oral hypoglycemic drugs; Z79.82 Long term (current) use of aspirin
CPT/HCPCS: 36415; 71045; 71275; 80048; 80053; 81000; 82805; 82947; 83605; 83735; 83880; 84100; 84145; 84484; 85007; 85025; 85027; 85379; 85610; 85730; 86141; 87040; 87081; 87088; 87636; 93005; 93306; 94640; 94660; 94664; 94760; 94761; 99291

== ENCOUNTER → 2021-09-19 | Outpatient (CLI) | payer MEDICARE, OTHER ==
[~2021-09-19] MED LIST: ASPI-1238 PO; ATOR40TA70 PO; CATHETER FLUSH 10 ML SYR IV PRN; CEFD300C3 PO; ENAL20TA16 PO; GEMF600T88 PO; IOHEXOL 350 MG/ML 100 ML (OMNIPAQUE 350) VIAL IV ONE; METF-397 PO; MTP25TSR PO; NS 100 ML (IVPB) BAG IV ONE; OMEG-160 PO; RIVA20TA2 PO
--- NOTE | 2021-09-19 19:54 | Diagnostic Imaging Report ---
INDICATION: Carotid vascular disease. COMPARISON: No relevant comparison. EXAMINATION: Post IV contrast CT angiogram neck performed with 3D reconstructions. FINDINGS: There are non-stenosing predominantly calcified plaques of the visualized normal caliber aortic arch. There is irregular and partly ulcerated largely soft plaque in the proximal left subclavian narrowing its lumen by about 50%. Mixed soft and hard plaque at the takeoff of the left common carotid narrow its lumen by about 50% proximally. There is substantial stenosis of the right subclavian as it passes over the right 1st rib. Lumen is narrowed by about 80%. The remaining left subclavian appears patent. The bilateral cervical vertebral arteries are codominant. There is stenosis owing to extrinsic compression from degenerative disease of the left cervical vertebral at the C5-C6 level where there is severe biforaminal stenosis. Cervical vertebral arteries are otherwise unremarkable and show no substantial plaque. There is diffuse intimal thickening and soft plaque throughout the bilateral common carotids. Mixed soft and hard plaque at the bilateral carotid bulbs and bifurcations extends into the proximal internal and extra carotids. Left proximal ICA is narrowed by likely less than 50%. The right narrowed by about 60% proximally. The mid to distal thirds of the cervical internal carotids were widely patent. The intracranial carotids patent as were the proximal anterior and middle cerebral arterial segments. The intradural vertebral arteries, the basilar and the proximal computer repairer patent. IMPRESSION: 1. Right greater than left mixed soft and hard carotid bifurcation and bulb plaques right proximal ICA narrowed about 60%, left appeared 50% or less stenosis. 2. Nonatheromatous narrowing of the left cervical vertebral at the C5-C6 level owing to disc displacement and uncovertebral joint spurring with its extrinsic compression. 3. 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 4. Left subclavian origin stenosis owing to irregular partially ulcerated atherosclerotic plaque. 5. Visualized intracranial arterial system patent. No large vessel occlusion, thrombus or appreciable aneurysm. Dictated by: Dictated on workstation # [id number]
== END ==
LOC: RAD 11:07
PROVIDERS: ATTEND Physician Assistant
DX: I65.23 Occlusion and stenosis of bilateral carotid arteries (principal); M48.02 Spinal stenosis, cervical region; M50.222 Other cervical disc displacement at C5-C6 level; M77.9 Enthesopathy, unspecified
CPT/HCPCS: 70498

== ENCOUNTER → 2021-10-17 | Outpatient (CLI) | payer MEDICARE, OTHER ==
[~2021-10-17] MED LIST changes: -CATHETER FLUSH 10 ML SYR IV PRN; +CATHETER FLUSH 10 ML SYR IVP PRN; -IOHEXOL 350 MG/ML 100 ML (OMNIPAQUE 350) VIAL IV ONE; -NS 100 ML (IVPB) BAG IV ONE
[2021-10-17 09:03] VITALS: BP 194/80
--- NOTE | 2021-10-17 13:13 | Cardiology Stress Test Report ---
Stress Test Report Date of Procedure/Referring: Date of Procedure: October 17, 2021 PCP Ricky Lowry DO Admitting Physician Admitting Physician: Attending Physician: Shannan Hinkle Indications: Patroxysmal atrial flutter Baseline Heart Rate: 68 Baseline Blood Pressure: Blood Pressure Systolic: 194 Blood Pressure Diastolic: 80 Vital Signs Date Time Temp Pulse Resp B/P (MAP) Pulse Ox O2 Delivery O2 Flow Rate FiO2 10/17/21 09:03 79 16 194/80 (118) 97 Room Air Baseline Vital Signs Vital Signs Date Time Temp Pulse Resp B/P (MAP) Pulse Ox O2 Delivery O2 Flow Rate FiO2 10/17/21 09:03 79 16 194/80 (118) 97 Room Air Baseline EKG: Baseline EKG: NSR Summary: After explaining the procedure and details to the patient, he signed the consent and was brought to the stress nuclear laboratory. Patient exercised on standard Konstantin protocol, EKG, heart rate and blood pressure were monitored continuously, resting and stress doses of radio tracer were injected, imaging was acquired and reviewed in the short axis, horizontal long axis and vertical long axis views Patient was able to exercise for a total of 6.15 minutes on Konstantin protocol, METs 7.5 Maximum heart rate 139 Maximum blood pressure 234/82 Stress EKG, Minimal nondiagnostic changes Recovery EKG, Return to baseline TID: 1.05 SSS: 2 SDS: 0 EF: 66 Conclusion: 1. Fair exercise tolerance for 6 minutes 15 seconds on Konstantin protocol, 7.5 METS achieving 94% of maximum expected heart rate 2. Appropriate heart rate and blood pressure response to exercise return to baseline during recovery 3. Mild apical thinning. No significant ischemia or infarction on SPECT images 4. Normal left ventricular size, EF 66% KENIA JONSE MD October 17, 2021 13:13
== END ==
LOC: CARD 07:00
PROVIDERS: ATTEND Physician Assistant
DX: I48.92 Unspecified atrial flutter (principal)
CPT/HCPCS: 78452; 93017; A9502